=== PATIENT | male | born 1990 | race African-American/Black ===

== ENCOUNTER 2017-04-04 03:38 | Emergency (ER) | payer OTHER ==
[2017-04-04 03:44] VITALS: BP 135/77; PULSE 78; RESP 18; TEMP 98
[2017-04-04] MEDS ORDERED: IBUPROFEN 600 MG TAB PO STA (03:47)
--- NOTE | 2017-04-04 04:43 | ED ---
Trauma HPI - General Chief Complaint: Extremity Injury, Upper Stated Complaint: swollen finger/injury Time Seen by Provider: 04/04/17 03:45 Source: patient, family Mode of arrival: ambulatory Limitations: no limitations - History of Present Illness Initial Comments: Patient complains of injury to the right middle finger. He was playing sports. Pain is worse with movement. Pain does not radiate anywhere. He took no pain medication prior to arrival. He has no numbness or tingling. He has no weakness. He denies other injuries. - Related Data Home Medications Medication Instructions Recorded Confirmed No Known Home Medications [No 04/04/17 04/04/17 Known Home Medications] Allergies Allergy/AdvReac Type Severity Reaction Status Date / Time No Known Allergies Allergy Verified 04/04/17 03:43 Review of Systems ROS Statement: Those systems with pertinent positive or pertinent negative responses have been documented in the HPI. ROS Other: All systems not noted in ROS Statement are negative. Past Medical History Past Medical History: No Reported History History of Any Multi-Drug Resistant Organisms: None Reported Past Surgical History: No Surgical Hx Reported Past Psychological History: No Psychological Hx Reported Smoking Status: Current every day smoker Past Alcohol Use History: Occasional Past Drug Use History: Marijuana General Exam Limitations: no limitations Extremities exam: Present: other (Tender right middle finger) Back exam: Present: normal inspection Neurological exam: Present: alert, oriented X3, CN II-XII intact Course Vital Signs 04/04/17 03:39 Temperature 98 F Pulse Rate 78 Respiratory 18 Rate Blood Pressure 135/77 O2 Sat by Pulse 99 Oximetry Medical Decision Making - Medical Decision Making Patient complains of finger contusion. Examination reveals tenderness. He has a fracture of the middle phalanx of the right middle finger. Patient is placed in a splint. He is neurovascularly intact distal to injury site post lifting. He is stable for discharge. He will follow-up with orthopedics. Disposition Clinical Impression: Finger fracture, right Disposition: HOME SELF-CARE Instructions: Finger Fracture (ED) Referrals: None,Stated [Primary Care Provider] - 1-2 days [facility] [Provider Group] - 1-2 days Time of Disposition: 04:43
--- NOTE | 2017-04-04 05:04 | XR ---
EXAM: XR Right Finger(s), 2 or More Views CLINICAL HISTORY: Reason: Pain. Jammed finger earlier today. TECHNIQUE: Frontal, lateral and oblique views of finger(s) of the right hand. COMPARISON: None FINDINGS: Bones/joints: Mildly displaced fracture of the base of the second middle phalanx with intra-articular extension. Soft tissues: Prominent soft tissue swelling, worst around the right second PIP joint. IMPRESSION: Mildly displaced, intra-articular fracture of the base of the right second middle phalanx with surrounding soft tissue swelling.
== END 2017-04-04 05:26 | disposition home or self-care (01) ==
LOC: EC 03:38
DX: S62.622A Displaced fracture of middle phalanx of right middle finger, initial encounter for closed fracture (principal); F17.200 Nicotine dependence, unspecified, uncomplicated; X58.XXXA Exposure to other specified factors, initial encounter; Y93.61 Activity, american tackle football
CPT/HCPCS: 99283

== ENCOUNTER 2017-09-27 18:02 | Emergency (ER) | payer OTHER ==
[2017-09-27] MEDS ORDERED: METOCLOPRAMIDE 5 MG/ML 2 ML VIAL IVP STA (19:54)
[2017-09-27] MEDS ORDERED: KETOROLAC 30 MG/ML 1 ML VIAL IVP STA (19:54)
[2017-09-27] MEDS ORDERED: ACETAMINOPHEN TAB 500 MG TAB PO STA (19:54)
[2017-09-27] MEDS ORDERED: SODIUM CHLORIDE 0.9% 1,000 ML IV STA (19:54)
[2017-09-27] MEDS ORDERED: diphenhydrAMINE 50 MG/ML 1 ML VIAL IVP STA (19:54)
[2017-09-27] MEDS ORDERED: methylPREDNISolone SOD SUCCI 125 MG/2 ML VIAL IV STA (19:55)
[2017-09-27] MEDS ORDERED: ORPHENADRINE 30 MG/ML 2 ML VIAL IVP STA (19:55)
[2017-09-27 20:15] VITALS: RESP 16
--- NOTE | 2017-09-27 20:30 | ED ---
Headache HPI - General Chief Complaint: Headache Stated Complaint: Headache Time Seen by Provider: 09/27/17 19:37 Source: RN notes reviewed, old records reviewed Mode of arrival: ambulatory Limitations: no limitations - History of Present Illness Initial Comments: His is a 27-year-old male presents emergency department today chief complaint of headache. Patient reports he woke up with a headache after sleeping at his friend's couch. He reports it radiates on the results of his neck. Also, sore throat today. He denies any fever or chills. He denies any falls or trauma to the neck for half. He was seen yesterday for scratches on his arm. Denies any other symptoms at this time. It is worse with bright lights. Patient denies any recent fever, chills, shortness of breath, chest pain, back pain, abdominal pain, nausea vomiting, numbness or tingling, dysuria or hematuria, constipation or diarrhea, headaches or visual changes, or any other current symptoms - Related Data Previous Rx's Medication Instructions Recorded Amoxicillin 500 mg PO Q8H #30 capsule 09/27/17 Allergies Allergy/AdvReac Type Severity Reaction Status Date / Time No Known Allergies Allergy Verified 09/27/17 19:34 Review of Systems ROS Statement: Those systems with pertinent positive or pertinent negative responses have been documented in the HPI. ROS Other: All systems not noted in ROS Statement are negative. Past Medical History Past Medical History: No Reported History History of Any Multi-Drug Resistant Organisms: None Reported Past Surgical History: No Surgical Hx Reported Past Psychological History: No Psychological Hx Reported Smoking Status: Current every day smoker Past Alcohol Use History: Occasional Past Drug Use History: None Reported General Exam - General Exam Comments Initial Comments: 27-year-old male. No distress. Limitations: no limitations General appearance: alert, in no apparent distress Head exam: Present: atraumatic, normocephalic, normal inspection Eye exam: Present: normal appearance, PERRL, EOMI. Absent: scleral icterus, conjunctival injection, periorbital swelling ENT exam: Present: normal exam, mucous membranes moist Neck exam: Present: normal inspection. Absent: tenderness, meningismus, lymphadenopathy Respiratory exam: Present: normal lung sounds bilaterally. Absent: respiratory distress, wheezes, rales, rhonchi, stridor Cardiovascular Exam: Present: regular rate, normal rhythm, normal heart sounds. Absent: systolic murmur, diastolic murmur, rubs, gallop, clicks GI/Abdominal exam: Present: soft, normal bowel sounds. Absent: distended, tenderness, guarding, rebound, rigid Extremities exam: Present: normal inspection, full ROM, normal capillary refill. Absent: tenderness, pedal edema, joint swelling, calf tenderness Back exam: Present: normal inspection Neurological exam: Present: alert, oriented X3, CN II-XII intact Psychiatric exam: Present: normal affect, normal mood Skin exam: Present: warm, dry, intact, normal color. Absent: rash Course Vital Signs 09/27/17 09/27/17 18:18 20:15 Temperature 99.1 F Pulse Rate 94 Respiratory 20 16 Rate Blood Pressure 139/91 O2 Sat by Pulse 100 Oximetry Medical Decision Making - Medical Decision Making 27-year-old male presents emergency Department with a headache migraine-like symptoms. Given medications through the IV. He reports his headache is feeling better. He does have a red erythematous throat. Rapid strep obtained and is positive. I will start the patient on amoxicillin. Patient advised to continue Motrin Tylenol for pain. Started on amoxicillin given a starter pack and emergency department. Patient agrees to treatment plan will comply. Return parameters were discussed. Note the patient was here yesterday for an infected scratch on his forearm. He was discharged with a prescription for Augmentin. He reports he prescription was too expensive so we did not pick it up. Patient will be started on amoxicillin. - Lab Data Lab Results 09/27/17 Range/Units 20:10 Group A Strep Rapid Positive A (Negative) - Radiology Data Radiology results: report reviewed Disposition Clinical Impression: Strep pharyngitis, Migraine Disposition: HOME SELF-CARE Condition: Good Instructions: Acute Headache (ED), Pharyngitis (ED) Additional Instructions: Patient advised to rest, increase fluids. Complete the antibiotic prescription. Return to emergency department if any alarming signs or symptoms occur. Prescriptions: Amoxicillin 500 mg PO Q8H #30 capsule Referrals: None,Stated [Primary Care Provider] - 1-2 days Time of Disposition: 21:04
[2017-09-27] MEDS ORDERED: AMOXICILLIN 500MG STARTER PACK 3 CAP BTL PO STA (21:02)
[2017-09-27 21:29] VITALS: BP 140/72; PULSE 68; TEMP 98.5
== END 2017-09-27 21:25 | disposition home or self-care (01) ==
LOC: EC 18:02
DX: G43.909 Migraine, unspecified, not intractable, without status migrainosus (principal); J02.0 Streptococcal pharyngitis; F17.200 Nicotine dependence, unspecified, uncomplicated
CPT/HCPCS: 99284; 96374; 96375 ×4; 87430; J1200; J2360; J2765; J2930; J1885

== ENCOUNTER 2022-05-22 11:38 | Observation (INO) | payer OTHER ==
[2022-05-22] MEDS ORDERED: KETOROLAC 15 MG/ML 1 ML VIAL IVP STA (12:58)
[2022-05-22] MEDS ORDERED: ONDANSETRON 4 MG/2 ML VIAL IVP STA (12:58)
[2022-05-22] MEDS ORDERED: SODIUM CHLORIDE 0.9% 1,000 ML IV STA (12:58)
--- NOTE | 2022-05-22 13:06 | XR ---
EXAMINATION TYPE: XR KUB DATE OF EXAM: 05/22/2022 12:50 PM CLINICAL HISTORY: Abdominal pain. TECHNIQUE: Two Upright KUB images of the abdomen are obtained. COMPARISON: None. FINDINGS: Scattered gas is seen in non-distended small bowel loops. Gas and fecal material is seen in non-distended colon. There is no visceromegaly, pneumoperitoneum, or abnormal calcification apprecia quincy. The lung bases are clear and the osseous structures are intact. IMPRESSION: Overall nonobstructive bowel gas pattern.
--- NOTE | 2022-05-22 13:27 | ED ---
Abdominal Pain HPI - General Chief Complaint: Abdominal Pain Stated Complaint: abd pain Time Seen by Provider: 05/22/22 12:52 Source: patient Mode of arrival: ambulatory Limitations: no limitations - History of Present Illness Initial Comments: Patient is a 32-year-old male presenting with chief complaint of abdominal pain. Patient states that the pain is mainly located in the epigastric region, it is cramping, the pain comes and goes. States his last bowel movement was 3 days ago, yesterday he was having episodes of nausea and vomiting. Patient states that he had an episode of pancreatitis due to heavy drinking a few months ago, he was seen at a different institution. No hematemesis. No chest pain, shortness of breath, palpitations, weakness. No dysuria, hematuria, urgency, frequency. No flank pain. No URI-like symptoms. - Related Data Home Medications Medication Instructions Recorded Confirmed Ibuprofen [Motrin Ib] 800 mg PO Q8H PRN 05/22/22 05/22/22 Allergies Allergy/AdvReac Type Severity Reaction Status Date / Time No Known Allergies Allergy Verified 05/22/22 16:03 Review of Systems ROS Statement: Those systems with pertinent positive or pertinent negative responses have been documented in the HPI. ROS Other: All systems not noted in ROS Statement are negative. Past Medical History Past Medical History: No Reported History History of Any Multi-Drug Resistant Organisms: None Reported Past Surgical History: No Surgical Hx Reported Past Psychological History: No Psychological Hx Reported Smoking Status: Current every day smoker Past Alcohol Use History: Occasional Past Drug Use History: None Reported General Exam Limitations: no limitations General appearance: alert, in no apparent distress Head exam: Present: atraumatic, normocephalic, normal inspection Eye exam: Present: normal appearance, EOMI. Absent: scleral icterus, periorbital swelling Neck exam: Present: normal inspection Respiratory exam: Present: normal lung sounds bilaterally. Absent: respiratory distress, wheezes, rales, rhonchi, stridor Cardiovascular Exam: Present: regular rate, normal rhythm, normal heart sounds. Absent: systolic murmur, diastolic murmur, rubs, gallop, clicks GI/Abdominal exam: Present: distended, normal bowel sounds. Absent: soft, tenderness, guarding, rebound, rigid Neurological exam: Present: alert, oriented X3, CN II-XII intact Psychiatric exam: Present: normal affect, normal mood Skin exam: Present: warm, dry, intact, normal color. Absent: rash Course Vital Signs 05/22/22 11:46 Temperature 98.1 F Pulse Rate 82 Respiratory 18 Rate Blood Pressure 133/90 O2 Sat by Pulse 100 Oximetry Medical Decision Making - Medical Decision Making Patient is a 32-year-old male with history of pancreatitis presenting with chief complaint of epigastric pain, nausea, vomiting. Pain is been ongoing for the last few days. On examination abdomen is distended. Laboratory shows no leuko cytosis. Lipase is 1464 and amylase is 194. Bilirubin is 2.3. No leukocytosis. CT shows acute interstitial edematous pancreatitis. No. Pancreatic fluid collections. There is reactive duodenitis. Ultrasound shows no definitive evidence for choledocholithiasis. Patient is given pain medicatio n, Zofran, and placed on lactated Ringer's. I spoke with Dr. Adams who agreed to admit the patient. I discussed these findings and the plan with the patient, he was agreeable. I discussed this case with my attending Dr. Toussaint - Lab Data Result diagrams: 05/22/22 13:16 05/22/22 13:16 Lab Results 05/22/22 05/22/22 05/22/22 Range/Units 13:16 13:16 13:16 WBC 5.8 (3.8-10.6) k/uL RBC 5.27 (4.30-5.90) m/uL Hgb 16.2 (13.0-17.5) gm/dL Hct 48.2 (39.0-53.0) % MCV 91.6 (80.0-100.0) fL MCH 30.8 (25.0-35.0) pg MCHC 33.6 (31.0-37.0) g/dL RDW 12.8 (11.5-15.5) % Plt Count 206 (150-450) k/uL MPV 7.6 Neutrophils % 74 % Lymphocytes % 14 % Monocytes % 7 % Eosinophils % 3 % Basophils % 1 % Neutrophils # 4.3 (1.3-7.7) k/uL Lymphocytes # 0.8 L (1.0-4.8) k/uL Monocytes # 0.4 (0-1.0) k/uL Eosinophils # 0.2 (0-0.7) k/uL Basophils # 0.0 (0-0.2) k/uL Sodium 136 L (137-145) mmol/L Potassium 4.0 (3.5-5.1) mmol/L Chloride 97 L (98-107) mmol/L Carbon Dioxide 27 (22-30) mmol/L Anion Gap 12 mmol/L BUN 9 (9-20) mg/dL Creatinine 0.96 (0.66-1.25) mg/dL Est GFR (CKD-EPI)AfAm >90 (>60 ml/min/1.73 sqM) Est GFR (CKD-EPI)NonAf >90 (>60 ml/min/1.73 sqM) Glucose 86 (74-99) mg/dL Plasma Lactic Acid Ankit 1.1 (0.7-2.0) mmol/L Calcium 9.7 (8.4-10.2) mg/dL Total Bilirubin 2.3 H (0.2-1.3) mg/dL AST 37 (17-59) U/L ALT 38 (4-49) U/L Alkaline Phosphatase 98 (38-126) U/L Total Protein 7.7 (6.3-8.2) g/dL Albumin 4.7 (3.5-5.0) g/dL Amylase 194 H (30-110) U/L Lipase 1464 H (23-300) U/L Urine Color Urine Appearance (Clear) Urine pH (5.0-8.0) Ur Specific [place] (1.001-1.035) Urine Protein (Negative) Urine Glucose (UA) (Negative) Urine Ketones (Negative) Urine Blood (Negative) Urine Nitrite (Negative) Urine Bilirubin (Negative) Urine Urobilinogen (<2.0) mg/dL Ur Leukocyte Esterase (Negative) Urine RBC (0-5) /hpf Urine WBC (0-5) /hpf Ur Squamous Epith Cells (0-4) /hpf Urine Mucus (None) /hpf 05/22/22 Range/Units 15:04 WBC (3.8-10.6) k/uL RBC (4.30-5.90) m/uL Hgb (13.0-17.5) gm/dL Hct (39.0-53.0) % MCV (80.0-100.0) fL MCH (25.0-35.0) pg MCHC (31.0-37.0) g/dL RDW (11.5-15.5) % Plt Count (150-450) k/uL MPV Neutrophils % % Lymphocytes % % Monocytes % % Eosinophils % % Basophils % % Neutrophils # (1.3-7.7) k/uL Lymphocytes # (1.0-4.8) k/uL Monocytes # (0-1.0) k/uL Eosinophils # (0-0.7) k/uL Basophils # (0-0.2) k/uL Sodium (137-145) mmol/L Potassium (3.5-5.1) mmol/L Chloride (98-107) mmol/L Carbon Dioxide (22-30) mmol/L Anion Gap mmol/L BUN (9-20) mg/dL Creatinine (0.66-1.25) mg/dL Est GFR (CKD-EPI)AfAm (>60 ml/min/1.73 sqM) Est GFR (CKD-EPI)NonAf (>60 ml/min/1.73 sqM) Glucose (74-99) mg/dL Plasma Lactic Acid Ankit (0.7-2.0) mmol/L Calcium (8.4-10.2) mg/dL Total Bilirubin (0.2-1.3) mg/dL AST (17-59) U/L ALT (4-49) U/L Alkaline Phosphatase (38-126) U/L Total Protein (6.3-8.2) g/dL Albumin (3.5-5.0) g/dL Amylase (30-110) U/L Lipase (23-300) U/L Urine Color Yellow Urine Appearance Clear (Clear) Urine pH 6.0 (5.0-8.0) Ur Specific [place] 1.030 (1.001-1.035) Urine Protein 1+ H (Negative) Urine Glucose (UA) Negative (Negative) Urine Ketones 3+ H (Negative) Urine Blood Negative (Negative) Urine Nitrite Negative (Negative) Urine Bilirubin 1+ H (Negative) Urine Urobilinogen 3.0 (<2.0) mg/dL Ur Leukocyte Esterase Small H (Negative) Urine RBC <1 (0-5) /hpf Urine WBC 10 H (0-5) /hpf Ur Squamous Epith Cells <1 (0-4) /hpf Urine Mucus Occasional H (None) /hpf Disposition Clinical Impression: Pancreatitis Disposition: ADMITTED IP TO THIS [facility] Condition: Fair Referrals: None,Stated [Primary Care Provider] - 1-2 days Time of Disposition: 16:38 Decision to Admit Reason: Admit from EC Decision Date: 05/22/22 Decision Time: 16:38
[2022-05-22 13:42] LABS: Basophils % (A) 1 %; Eosinophils # (A) 0.2 k/uL (0-0.7); Eosinophils % (A) 3 %; HCT 48.2 % (39.0-53.0); HGB 16.2 gm/dL (13.0-17.5); Lymphocytes # (A) 0.8 k/uL (1.0-4.8); Lymphocytes % (A) 14 %; MCH 30.8 pg (25.0-35.0); MCHC 33.6 g/dL (31.0-37.0); MCV 91.6 fL (80.0-100.0); Mean Platelet Volume 7.6; Monocytes # (A) 0.4 k/uL (0-1.0); Monocytes % (A) 7 %; Neutrophils # (A) 4.3 k/uL (1.3-7.7); Neutrophils % (A) 74 %; Platelet Count 206 k/uL (150-450); RBC 5.27 m/uL (4.30-5.90); RDW 12.8 % (11.5-15.5); WBC 5.8 k/uL (3.8-10.6)
[2022-05-22 14:03] LABS: ALT 38 U/L (4-49); AST 37 U/L (17-59); African American GFR (CKD) >90 (>60 ml/min/1.73 sqM); Albumin 4.7 g/dL (3.5-5.0); Alkaline Phosphatase 98 U/L (38-126); Amylase 194 U/L (30-110); Anion Gap 12 mmol/L; Blood Urea Nitrogen 9 mg/dL (9-20); Calcium 9.7 mg/dL (8.4-10.2); Carbon Dioxide 27 mmol/L (22-30); Chloride 97 mmol/L (98-107); Glucose 86 mg/dL (74-99); Lipase 1464 U/L (23-300); Non-African American GFR(CKD) >90 (>60 ml/min/1.73 sqM); Sodium 136 mmol/L (137-145); Total Bilirubin 2.3 mg/dL (0.2-1.3); Total Protein 7.7 g/dL (6.3-8.2)
[2022-05-22] MEDS ORDERED: SODIUM CHLORIDE 0.9% 1,000 ML IV SCH (15:00)
--- NOTE | 2022-05-22 15:01 | CT ---
EXAMINATION TYPE: CT abdomen pelvis w con CT DLP: 967.5 mGycm, Automated exposure control for dose reduction was used. DATE OF EXAM: 05/22/2022 2:51 PM COMPARISON: KUB 05/22/2022 CLINICAL INDICATION:Male, 32 years old with history of Epigastric pain, pancreatitis; RUQ pain TECHNIQUE: Standard CT of the abdomen and pelvis following the administration of 100 cc of Isovue 3 00 IV contrast material. Coronal and sagittal reformats were performed. FINDINGS: LOWER CHEST: Unremarkable ABDOMEN LIVER: Small region of low attenuation adjacent to the falciform ligament likely representing focal f atty infiltration. Otherwise no concerning lesion. GALLBLADDER AND BILE DUCTS: Unremarkable. PANCREAS: Heterogenous low attenuation appearance of the pancreatic head/neck with surrounding inflam matory changes. No peripancreatic organized fluid collection. No peripancreatic vascular complication definitively visualized. No evidence for necrosis. No pancreatic parenchymal calcifications noted. N o pancreatic ductal dilatation. SPLEEN: Unremarkable. ADRENAL GLANDS: Unremarkable. KIDNEYS AND URETERS: No evidence of hydronephrosis or renal calculus. Kidneys enhance symmetrically w ithout suspicious focal lesion. PELVIS BLADDER: Incompletely distended but grossly unremarkable. REPRODUCTIVE: Nonspecific heterogenous appearance of the prostate gland. ABDOMEN & PELVIS STOMACH AND BOWEL: Stomach is unremarkable. Subtle fat stranding surrounding the proximal duodenum. T he appendix is within normal limits. No evidence of bowel obstruction. PERITONEUM: No evidence of pneumoperitoneum. Trace free fluid in the pelvis. VASCULATURE: No evidence of aortic aneurysm. MUSCULOSKELETAL: No acute osseous abnormalities LYMPH NODES: No gross evidence for lymphadenopathy. SOFT TISSUE/ABDOMINAL WALL: Unremarkable IMPRESSION: 1. Acute interstitial edematous pancreatitis. No peripancreatic fluid collections. 2. Reactive duodenitis.
[2022-05-22 15:17] LABS: Appearance,Urine Clear (Clear); Bilirubin,Urine 1+ (Negative); Blood,Urine Negative (Negative); Color,Urine Yellow; Glucose,Urine (UA) Negative (Negative); Leukocyte Esterase,Urine Small (Negative); Mucus,Urine Occasional /hpf; Nitrite,Urine Negative (Negative); Protein,Urine 1+ (Negative); RBC,Urine <1 /hpf (0-5); Squamous Epithelial Cell,Urine <1 /hpf (0-4); WBC,Urine 10 /hpf (0-5)
[2022-05-22 15:18] LABS: Ketones,Urine 3+ (Negative)
[2022-05-22] MEDS ORDERED: MORPHINE SULFATE 4 MG/ML SYRINGE IVP STA (15:36)
--- NOTE | 2022-05-22 16:31 | US ---
EXAMINATION TYPE: US abdomen limited DATE OF EXAM: 05/22/2022 COMPARISON: NONE CLINICAL HISTORY: Pancreatitis, rule out obstruction. TECHNIQUE: Multiple sonographic images of the right upper quadrant are obtained. FINDINGS: EXAM MEASUREMENTS: Liver Length: 11.2 cm Gallbladder Wall: 0.2 cm CBD: 0.4 cm Right Kidney: 11.2 X 4.8 X 5.5 cm ENGINE HEAD REPAIRER NOTES: Pancreas: appears bulky and heterogeneous Liver: wnl Gallbladder: No stones seen Evidence for sonographic Asher's sign: No CBD: wnl Right Kidney: No hydronephrosis or masses seen IMPRESSION: 1. No definitive evidence for choledocholithiasis. Consider MRCP if there remains clinical concern. 2. Similar appearing interstitial edematous pancreatitis changes. 3.
[2022-05-22] MEDS ORDERED: NALOXONE 0.4 MG/ML 1 ML VIAL IV PRN (16:46)
[2022-05-22] MEDS ORDERED: ONDANSETRON 4 MG/2 ML VIAL IVP PRN (16:46)
[2022-05-22] MEDS ORDERED: MORPHINE SULFATE 4 MG/ML SYRINGE IV PRN (16:46)
[2022-05-22] MEDS ORDERED: KETOROLAC 15 MG/ML 1 ML VIAL IVP PRN (16:46)
[2022-05-22] MEDS: PANTOPRAZOLE 40 MG/10 ML VIAL IVP SCH (17:40)
[2022-05-22] MEDS ORDERED: NICOTINE GUM (POLACRILEX) 2 MG GUM BUCCAL PRN (18:12)
[2022-05-22] MEDS ORDERED: ACETAMINOPHEN TAB 325 MG TAB PO PRN (18:12)
[2022-05-22] MEDS ORDERED: MELATONIN 3 MG TABLET PO PRN (18:12)
[2022-05-22] MEDS ORDERED: HYDROmorphone 2 MG TAB PO PRN (18:12)
[2022-05-22] MEDS: LACTATED RINGERS 1,000 ML IV SCH ×2 (18:21→18:26)
--- NOTE | 2022-05-22 18:26 | P.HPIM ---
History of Present Illness H&P Date: 05/22/22 Chief Complaint: abdominal pain Patient is a 32-year-old male with recent pancreatitis and ongoing tobacco abuse who presented to the emergency department with complaints of abdominal pain. In the ER he underwent an extensive evaluation. Initial vital signs within normal limits. Laboratory analysis was remarkable for a bilirubin of 2.3, amylase 194, lipase 1464, urinalysis was positive for proteins, ketones, and bilirubin. CT abdomen and pelvis demonstrated acute interstitial edematous pancreatitis with reactive duodenitis. Gallbladder ultrasound revealed no evidence of choledocholithiasis with edematous pancreas. He was provided with 1 L fluid bolus and pain medications. Patient seen and examined at bedside. He reports that he started having abdominal pain 3 days ago. He is unsure of the trigger. It is very similar to when he had pancreatitis 2 months ago, but it is less severe. He reports he has not been eating and drinking much the last 3 days because he thought it would help. He decided to come to the ER today because it was not getting any better. He does drink alcohol several drinks every other day. He denies eating fatty meals. He has no history of gallbladder dysfunction. He is unsure if they checked his cholesterol levels during his last hospital stay. Pertinent positives and negatives as discussed in HPI, a complete review of systems was performed and all other systems are negative. Vital signs reviewed General: nontoxic, no distress, appears at stated age Derm: warm, dry Head: atraumatic, normocephalic, symmetric Eyes: EOMI, no lid lag, anicteric sclera, pupils equal round reactive to light ENT: Nose and ears atraumatic, no thrush, no pharyngeal erythema Neck: No thyromegaly, no cervical lymphadenopathy, trachea midline, supple Mouth: no lip lesion, mucus membranes moist Cardiovascular: S1S2 reg, no murmur, positive posterior tibial pulse bilateral, no edema, capillary refill less than 2 seconds Lungs: clear to auscultation bilateral, no rhonchi, no rales, no wheeze, no accessory muscle use Abdominal: soft, tender to palpation epigastric, no guarding, no appreciable organomegaly, normal bowel sounds Ext: no gross muscle atrophy, muscle strength muscle strength 5 out of 5 in all 4 extremities, no contractures Neuro: CN II-XII grossly intact, light touch intact all 4 extremities, finger to nose within normal limits, Psych: Alert, oriented, appropriate affect Assessment/Plan: Acute pancreatitis -IV fluids -Pain control -Antiemetics -Okay for ice chips -Consult GI -Alcohol cessation Tobacco abuse -Cessation -Nicotine replacement The patient is admitted with an anticipated greater than 2 midnight stay for evaluation of acute pancreatitis. DVT prophylaxis: Lovenox Discussed with: Patient, nursing, ER physician Anticipated discharge date: In 1-[address]: Home A total of 45 minutes was spent on the care of this complex patient more than 50% of the time was spent in counseling and care coordination. Past Medical History Additional Past Medical History / Comment(s): pancreatitis History of Any Multi-Drug Resistant Organisms: None Reported Past Surgical History: No Surgical Hx Reported Past Psychological History: No Psychological Hx Reported Smoking Status: Current every day smoker Past Alcohol Use History: Heavy Past Drug Use History: None Reported - Past Family History family Additional Family Medical History / Comment(s): no family hx of pancreatitis Medications and Allergies Home Medications Medication Instructions Recorded Confirmed Type Ibuprofen [Motrin Ib] 800 mg PO Q8H PRN 05/22/22 05/22/22 History Allergies Allergy/AdvReac Type Severity Reaction Status Date / Time No Known Allergies Allergy Verified 05/22/22 16:03 Physical Exam Osteopathic Statement: *. No significant issues noted on an osteopathic s tructural exam other than those noted in the History and Physical/Consult. Vitals: Vital Signs Temp Pulse Resp BP Pulse Ox 05/22/22 11:46 98.1 F 82 18 133/90 100 Intake and Output 05/22/22 05/22/22 05/22/22 06:59 14:59 22:59 Other: Weight 89.811 kg Results CBC & Chem 7: 05/22/22 13:16 05/22/22 13:16 Labs: Abnormal Lab Results - Last 24 Hours (Table) 05/22/22 05/22/22 05/22/22 Range/Units 13:16 13:16 15:04 Lymphocytes # 0.8 L (1.0-4.8) k/uL Sodium 136 L (137-145) mmol/L Chloride 97 L (98-107) mmol/L Total Bilirubin 2.3 H (0.2-1.3) mg/dL Amylase 194 H (30-110) U/L Lipase 1464 H (23-300) U/L Urine Protein 1+ H (Negative) Urine Ketones 3+ H (Negative) Urine Bilirubin 1+ H (Negative) Ur Leukocyte Esterase Small H (Negative) Urine WBC 10 H (0-5) /hpf Urine Mucus Occasional H (None) /hpf
[2022-05-22] MEDS: NICOTINE 21MG/24HR PATCH TRANSDERM SCH (20:13)
[2022-05-22] MEDS: HYDROmorphone 0.5 MG/0.5 ML SYRINGE IVP PRN (20:14)
[2022-05-23] MEDS: HYDROmorphone 0.5 MG/0.5 ML SYRINGE IVP PRN ×5 (00:09→22:11)
[2022-05-23] MEDS: LACTATED RINGERS 1,000 ML IV SCH ×5 (00:10→22:12)
[2022-05-23 09:05] LABS: Basophils # (A) 0.01 X 10*3/uL (0.00-0.10); Basophils % (A) 0.2 %; Eosinophils # (A) 0.22 X 10*3/uL (0.04-0.35); Eosinophils % (A) 4.6 %; HGB 14.1 g/dL (13.0-17.0); Immature Grans, Automated 0.2 %; Lymphocytes # (A) 1.24 X 10*3/uL (0.90-5.00); Lymphocytes % (A) 25.9 %; MCH 30.3 pg (27.0-32.0); MCHC 33.6 g/dL (32.0-37.0); MCV 90.1 fL (80.0-97.0); Mean Platelet Volume 10.4 fL (9.5-12.2); Monocytes # (A) 0.53 X 10*3/uL (0.20-1.00); Monocytes % (A) 11.1 %; NRBC Per 100 WBC 0 /100 WBCS (0.0-0.0); Neutrophils # (A) 2.77 X 10*3/uL (1.80-7.70); Platelet Count 160 X 10*3/uL (140-440); RBC 4.66 X 10*6/uL (4.40-5.60); RDW 12.6 % (11.5-14.5); WBC 4.78 X 10*3/uL (4.50-10.00)
[2022-05-23] MEDS: ENOXAPARIN 40 MG/0.4 ML SYRINGE SQ SCH (09:16)
[2022-05-23] MEDS: PANTOPRAZOLE 40 MG/10 ML VIAL IVP SCH (09:17)
[2022-05-23] MEDS: NICOTINE 21MG/24HR PATCH TRANSDERM SCH (09:17)
[2022-05-23 09:38] LABS: African American GFR (CKD) 114.9 (60.0-200.0); Albumin 3.8 g/dL (3.8-4.9); Albumin/Globulin Ratio 2.24 (1.60-3.17); Anion Gap 9.9 mmol/L (10.00-18.00); BUN/Creat Ratio 6.7 Ratio (12.00-20.00); Blood Urea Nitrogen 6.7 mg/dL (9.0-27.0); Calcium 8.7 mg/dL (8.7-10.3); Carbon Dioxide 26.1 mmol/L (20.0-27.5); Globulin 1.7 g/dL (1.6-3.3); Non-African American GFR(CKD) 99.1 (60.0-200.0); Potassium 3.4 mmol/L (3.5-5.5); Total Bilirubin 1.4 mg/dL (0.30-1.20); Total Protein 5.5 g/dL (6.2-8.2)
[2022-05-23] MEDS ORDERED: POTASSIUM CHLORIDE 20 MEQ in WATER FOR INJECTION 1 100ML.BAG IVPB ONE (11:30)
[2022-05-23] MEDS: HYDROcodone/APAP 7.5-325MG 1 EACH TAB PO PRN (12:30)
--- NOTE | 2022-05-23 13:57 | P.PN ---
Subjective Progress Note Date: 05/23/22 Principal diagnosis: abdominal pain Patient is a 32-year-old male with recent pancreatitis and ongoing tobacco abuse who presented to the emergency department with complaints of abdominal pain. In the ER he underwent an extensive evaluation. Initial vital signs within normal limits. Laboratory analysis was remarkable for a bilirubin of 2.3, amylase 194, lipase 1464, urinalysis was positive for proteins, ketones, and bilirubin. CT abdomen and pelvis demonstrated acute interstitial edematous pancreatitis with reactive duodenitis. Gallbladder ultrasound revealed no evidence of choledocholithiasis with edematous pancreas. He was provided with 1 L fluid bolus and pain medications. He was admitted. He received an additional 2 L, started on IV fluids. GI was consulted. By the morning after admission his pain had greatly improved. Patient seen and examined at bedside. He denies any chest pain, shortness of breath, his abdominal pain is much better than yesterday, he is feeling hungry. He denies any nausea or vomiting. General: nontoxic, no distress, appears at stated age Derm: warm, dry Head: atraumatic, normocephalic, symmetric Eyes: EOMI, no lid lag, anicteric sclera Mouth: no lip lesion, mucus membranes moist Cardiovascular: S1S2 reg, no murmur, positive posterior tibial pulse bilateral, Lungs: CTA bilateral, no rhonchi, no rales , no accessory muscle use Abdominal: soft, tender to palpation. Epigastric, no guarding, no appreciable organomegaly Ext: no gross muscle atrophy, no edema, no contractures Neuro: CN II-XI grossly intact, no focal neuro deficits Psych: Alert, oriented, appropriate affect Assessment/Plan: Acute pancreatitis -IV fluids -Pain control, add orals to minimize IV narcotic use -Antiemetics -Increase to clear liquid -GI recommendations appreciated -Alcohol cessation -Check triglyceride level - suspect alcohol induced. Tobacco abuse -Cessation -Nicotine replacement DVT prophylaxis: Lovenox Discussed with: Patient, nursing Anticipated discharge: in AM Anticipated discharge place: home A total of 25 minutes was spent on the care of this complex patient more than 50% of the time was spent in counseling and care coordination. Objective - Vital Signs Vital signs: Vital Signs Temp 98.2 F 05/23/22 13:18 Pulse 68 05/23/22 13:18 Resp 14 05/23/22 13:18 BP 145/93 05/23/22 13:18 Pulse Ox 100 05/23/22 13:18 FiO2 Intake & Output 05/22/22 05/23/22 05/23/22 18:59 06:59 18:59 Intake Total 0 Balance 0 Weight 89.811 kg 89.811 kg Intake: Oral 0 Other: Voiding Method Toilet Toilet # Voids 2 - Labs CBC & Chem 7: 05/23/22 04:25 05/23/22 04:25 Labs: Abnormal Lab Results - Last 24 Hours (Table) 05/22/22 05/22/22 05/23/22 Range/Units 13:16 15:04 04:25 Sodium 136 L 133 L (137-145) mmol/L Potassium 3.4 L (3.5-5.5) mmol/L Chloride 97 L (98-107) mmol/L Anion Gap 9.90 L (10.00-18.00) mmol/L BUN 6.7 L (9.0-27.0) mg/dL BUN/Creatinine Ratio 6.70 L (12.00-20.00) Ratio Total Bilirubin 2.3 H 1.40 H (0.2-1.3) mg/dL Total Protein 5.5 L (6.2-8.2) g/dL Amylase 194 H (30-110) U/L Lipase 1464 H 166 H (23-300) U/L Urine Protein 1+ H (Negative) Urine Ketones 3+ H (Negative) Urine Bilirubin 1+ H (Negative) Ur Leukocyte Esterase Small H (Negative) Urine WBC 10 H (0-5) /hpf Urine Mucus Occasional H (None) /hpf
--- NOTE | 2022-05-23 16:00 | P.CONS ---
History of Present Illness - Reason for Consult Consult date: 05/23/22 Pancreatitis Requesting physician: Enid Adams - Chief Complaint Abdominal pain - History of Present Illness There is a pleasant 32-year-old -[place] male who presented to the emergency department with complaints of right upper quadrant and epigastric pain. Patient states pain has been present for the last couple of days associated with some nausea but no vomiting. Patient states he has a history of pancreatitis in his first episode was diagnosed approximately 2 months ago where he was admitted to [facility] for approximately 1 week duration. Patient admits to a long history of alcohol abuse and was told pancreatitis was related to a call abuse. Patient denies any new medications, no history of gallbladder disease. He states he drinks 2 pints of liquor a day and has been drinking daily since the age of 19. He also is a current every day smoker. He had a CT of the abdomen and pelvis that showed acute interstitial edematous medeiros creatitis and duodenitis. Ultrasound again shows pancreatitis, no gallstones present and CBD within normal limits. Patient denies any fevers or chills. No evidence of leukocytosis on admission. He was noted to have elevated amylase 194 and lipase at 1464 on admission. Today he states abdominal pain is improved. He is tolerating ice chips. Denies any nausea or vomiting. Review of Systems REVIEW OF SYSTEMS: CARDIOPULMONARY: No chest pain or shortness of breath. Gastrointestinal: Right upper quadrant abdominal pain. No nausea or vomiting. No hematemesis, coffee-ground emesis. No rectal bleeding, or melena. GENITOURINARY: No dysuria or hematuria. MUSCULOSKELETAL: Reports normal range of motion. SKIN: No rashes. No jaundice. ENDOCRINE: No chills, fevers. No excessive weight gain or loss. No polydipsia or polyuria. PSYCHIATRIC: Unremarkable. NEUROLOGY: No change in mental status. Denies dizziness, headache. ENT: Vision unremarkable. CONSTITUTIONAL: No recent weight loss. No fever, chills, night sweats. Past Medical History Past Medical History: No Reported History Additional Past Medical History / Comment(s): pancreatitis History of Any Multi-Drug Resistant Organisms: None Reported Past Surgical History: No Surgical Hx Reported Past Psychological History: No Psychological Hx Reported Smoking Status: Current every day smoker Past Alcohol Use History: Occasional Past Drug Use History: None Reported - Past Family History family Additional Family Medical History / Comment(s): no family hx of pancreatitis Medications and Allergies Home Medications Medication Instructions Recorded Confirmed Type Ibuprofen [Motrin Ib] 800 mg PO Q8H PRN 05/22/22 05/22/22 History Allergies Allergy/AdvReac Type Severity Reaction Status Date / Time No Known Allergies Allergy Verified 05/22/22 16:03 Physical Exam Vitals: Vital Signs Temp Pulse Pulse Resp BP BP Pulse Ox 05/23/22 08:00 97.7 F 58 L 14 138/85 100 05/23/22 02:14 97.9 F 57 L 17 146/89 100 05/22/22 22:21 98.1 F 52 L 19 162/85 98 05/22/22 20:12 98.6 F 58 L 18 159/75 100 05/22/22 18:28 56 L 16 164/84 100 05/22/22 11:46 98.1 F 82 18 133/90 100 Intake and Output 05/22/22 05/23/22 05/23/22 22:59 06:59 14:59 Intake Total 0 Balance 0 Intake: Oral 0 Other: Voiding Method Toilet # Voids 2 Weight 89.811 kg General appearance: The patient is alert, oriented, appears in no acute distress. HET: Head is normocephalic and atraumatic. Conjunctiva pink. Sclera anicteric. Neck: Supple without lymphadenopathy. Trachea midline. Heart: S1 S2. Regular rate and rhythm. Lungs: Clear to auscultation. Abdomen: Soft, mild right upper quadrant tenderness with palpation, nondistended with bowel sounds. No guarding or rigidity. Skin: No rashes. No jaundice. Extremities: Normal skin color and turgor. No pedal edema. Neurological: No focal deficits. Alert and oriented x3. Results CBC & Chem 7: 05/23/22 04:25 05/23/22 04:25 Labs: Abnormal Lab Results - Last 24 Hours (Table) 05/22/22 05/22/22 05/22/22 Range/Units 13:16 13:16 15:04 Lymphocytes # 0.8 L (1.0-4.8) k/uL Sodium 136 L (137-145) mmol/L Potassium (3.5-5.5) mmol/L Chloride 97 L (98-107) mmol/L Anion Gap (10.00-18.00) mmol/L BUN (9.0-27.0) mg/dL BUN/Creatinine Ratio (12.00-20.00) Ratio Total Bilirubin 2.3 H (0.2-1.3) mg/dL Total Protein (6.2-8.2) g/dL Amylase 194 H (30-110) U/L Lipase 1464 H (23-300) U/L Urine Protein 1+ H (Negative) Urine Ketones 3+ H (Negative) Urine Bilirubin 1+ H (Negative) Ur Leukocyte Esterase Small H (Negative) Urine WBC 10 H (0-5) /hpf Urine Mucus Occasional H (None) /hpf 05/23/22 Range/Units 04:25 Lymphocytes # (1.0-4.8) k/uL Sodium 133 L (137-145) mmol/L Potassium 3.4 L (3.5-5.5) mmol/L Chloride (98-107) mmol/L Anion Gap 9.90 L (10.00-18.00) mmol/L BUN 6.7 L (9.0-27.0) mg/dL BUN/Creatinine Ratio 6.70 L (12.00-20.00) Ratio Total Bilirubin 1.40 H (0.2-1.3) mg/dL Total Protein 5.5 L (6.2-8.2) g/dL Amylase (30-110) U/L Lipase 166 H (23-300) U/L Urine Protein (Negative) Urine Ketones (Negative) Urine Bilirubin (Negative) Ur Leukocyte Esterase (Negative) Urine WBC (0-5) /hpf Urine Mucus (None) /hpf CT scan - abdomen: report reviewed (Acute interstitial edematous pancreatitis. No. Pancreatic fluid collection. Reactive duodenitis.) US - abdomen: report reviewed (No definitive evidence for choledocholithiasis. Consider MRCP if there remains clinical concern. Similar-appearing interstitial edematous pancreatitis changes.) Assessment and Plan (1) Alcoholic pancreatitis Narrative/Plan: 32-year-old male with a history of alcohol dependence admitting to drinking 2 pints of liquor daily. Patient states he was previously diagnosed with pancreatitis alcohol-related approximately 2 months ago as his first episode and was admitted to [facility] for 1 week duration. He denies any other previous history, denies any new medications, no history of gallbladder disease. CT of abdomen and pelvis as well as abdominal ultrasound consistent with uncomplicated pancreatitis. Etiology likely alcohol induced. Pancreatic enzymes improving amylase 120 down from 194, lipase 166 down from 1464. Abdominal pain are improving on patient with IV fluids, GI rest and pain medications. Discuss with patient importance of alcohol abstinence, tobacco cessation. Current Visit: Yes Status: Acute Code(s): K85.20 - ALCOHOL INDUCED ACUTE PANCREATITIS WITHOUT NECROSIS OR INFCT SNOMED Code(s): 837394508 Plan: 1. Continue symptomatic and supportive care 2. Continue IV fluids 3. Patient may have clear liquid diet, advance as tolerated 4. Recommend alcohol abstinence and tobacco cessation 5. Continue with pain management Thank you for this consultation, we will continue to follow. Anticipate disch arge in the next [address] Luis Moore I agree with the dictator's note, documented as a scribe by Vivian June.
[2022-05-24] MEDS: LACTATED RINGERS 1,000 ML IV SCH ×2 (02:23→08:10)
[2022-05-24 05:53] LABS: ALT 20 U/L (4-49); AST 23 U/L (17-59); African American GFR (CKD) >90 (>60 ml/min/1.73 sqM); Albumin 3.6 g/dL (3.5-5.0); Albumin/Globulin Ratio 1.6; Alkaline Phosphatase 69 U/L (38-126); Anion Gap 8 mmol/L; Blood Urea Nitrogen 4 mg/dL (9-20); Calcium 8.8 mg/dL (8.4-10.2); Carbon Dioxide 30 mmol/L (22-30); Chloride 98 mmol/L (98-107); Globulin 2.3 g/dL; Glucose 96 mg/dL (74-99); Non-African American GFR(CKD) >90 (>60 ml/min/1.73 sqM); Potassium 3.6 mmol/L (3.5-5.1); Sodium 136 mmol/L (137-145); Total Bilirubin 1.6 mg/dL (0.2-1.3); Total Protein 5.9 g/dL (6.3-8.2)
[2022-05-24] MEDS: PANTOPRAZOLE 40 MG/10 ML VIAL IVP SCH (08:08)
[2022-05-24] MEDS: NICOTINE 21MG/24HR PATCH TRANSDERM SCH (08:08)
[2022-05-24] MEDS: ENOXAPARIN 40 MG/0.4 ML SYRINGE SQ SCH (08:09)
[2022-05-24 08:14] VITALS: BP 131/81; PULSE 62; RESP 14; TEMP 98.1
[2022-05-24] MEDS: HYDROcodone/APAP 7.5-325MG 1 EACH TAB PO PRN (08:16)
--- NOTE | 2022-05-24 11:37 | P.PN ---
Subjective Progress Note Date: 05/24/22 Principal diagnosis: Pancreatitis This is a pleasant 32-year-old -[place] male who presented to the emergency department with complaints of right upper quadrant and epigastric pain. Patient states pain has been present for the last couple of days associated with some nausea but no vomiting. Patient states he has a history of pancreatitis in his first episode was diagnosed approximately 2 months ago where he was admitted to [facility] for approximately 1 week duration. Patient admits to a long history of alcohol abuse and was told pancreatitis was related to a call abuse. Patient denies any new medications, no history of gallbladder disease. He states he drinks 2 pints of liquor a day and has been drinking daily since the age of 19. He also is a current every day smoker. He had a CT of the abdomen and pelvis that showed acute interstitial edematous pancreatitis and duodenitis. Ultrasound again shows pancreatitis, no gallstones present and CBD within normal limits. Patient denies any fevers or chills. No evidence of leukocytosis on admission. He was noted to have elevated amylase 194 and lipase at 1464 on admission. Today he states abdominal pain is improved. He is tolerating ice chips. Denies any nausea or vomiting. 05/24/2022: Patient seen and reevaluated. He has abdominal pain has improved significantly. He is tolerating full liquid diet. He's been up and ambulating. Denies any nausea or vomiting. Lipase continued to improve yesterday, LFTs are normal. Total bilirubin 1.6. Objective - Vital Signs Vital signs: Vital Signs Temp 98.1 F 05/24/22 08:00 Pulse 62 05/24/22 08:00 Resp 14 05/24/22 08:00 BP 131/81 05/24/22 08:00 Pulse Ox 100 05/24/22 08:00 FiO2 Intake & Output 05/23/22 05/24/22 05/24/22 18:59 06:59 18:59 Intake Total 118 240 Balance 118 240 Intake: Oral 118 240 Other: Voiding Method Toilet Toilet # Voids 2 2 - Exam General appearance: The patient is alert, oriented, appears in no acute distress. HET: Head is normocephalic and atraumatic. Conjunctiva pink. Sclera anicteric. Neck: Supple without lymphadenopathy. Abdomen: Soft, nontender, nondistended with bowel sounds. No guarding or rigidity. Extremities: Normal skin color and turgor. No pedal edema Skin: No rashes, no jaundice Neurological: No focal deficits. Alert and oriented -3. - Labs CBC & Chem 7: 05/23/22 04:25 05/24/22 05:22 Labs: Abnormal Lab Results - Last 24 Hours (Table) 05/23/22 05/24/22 Range/Units 04:25 05:22 Sodium 133 L 136 L (135-145) mmol/L Potassium 3.4 L (3.5-5.5) mmol/L Anion Gap 9.90 L (10.00-18.00) mmol/L BUN 6.7 L 4 L (9.0-27.0) mg/dL BUN/Creatinine Ratio 6.70 L (12.00-20.00) Ratio Total Bilirubin 1.40 H 1.6 H (0.30-1.20) mg/dL Total Protein 5.5 L 5.9 L (6.2-8.2) g/dL Lipase 166 H (14-60) U/L Assessment and Plan (1) Alcoholic pancreatitis Narrative/Plan: 32-year-old male with a history of alcohol dependence admitting to drinking 2 pints of liquor daily. Patient states he was previously diagnosed with pancreatitis alcohol-related approximately 2 months ago as his first episode and was admitted to [facility] for 1 week duration. He denies any other previous history, denies any new medications, no history of gallbladder disease. CT of abdomen and pelvis as well as abdominal ultrasound consistent with uncomplicated pancreatitis. Etiology likely alcohol induced. Pancreatic enzymes improving amylase 120 down from 194, lipase 166 down from 1464. Abdominal pain are improving on patient with IV fluids, GI rest and pain medications. Discuss with patient importance of alcohol abstinence, tobacco cessation. Status: Acute Code(s): K85.20 - ALCOHOL INDUCED ACUTE PANCREATITIS WITHOUT NECROSIS OR INFCT SNOMED Code(s): 487600692 Plan: 1. Continue symptomatic and supportive care 2. Advance diet as tolerated 3. Recommend alcohol abstinence and tobacco cessation Thank you for this consultation, patient is cleared for discharge from gastroenterology. Dr. Luis Moore I agree with the dictator's note, documented as a scribe by Vivian June.
--- NOTE | 2022-05-24 14:21 | P.DS ---
Providers Date of admission: 05/22/22 16:46 Expected date of discharge: 05/24/22 Attending physician: Enid Adams DO Consults: 05/22/22 16:46 Consult Physician Urgent Consulting Provider: Yara Moore Consult Reason/Comments: Pancreatitis Do you want consulting provider notified?: Yes Primary care physician: Stated None Hospital Course: Discharge Diagnosis: Acute pancreatitis Tobacco abuse Alcoholic gastritis Hospital Course: Patient is a 32-year-old male with recent pancreatitis and ongoing tobacco abuse who presented to the emergency department with complaints of abdominal pain. In the ER he underwent an extensive evaluation. Initial vital signs within normal limits. Laboratory analysis was remarkable for a bilirubin of 2.3, amylase 194, lipase 1464, urinalysis was positive for proteins, ketones, and bilirubin. CT abdomen and pelvis demonstrated acute interstitial edematous pancreatitis with reactive duodenitis. Gallbladder ultrasound revealed no evidence of choledocholithiasis with edematous pancreas. He was provided with 1 L fluid bolus and pain medications. He was admitted. He received an additional 2 L, started on IV fluids. GI was consulted. By the morning after admission his pain had greatly improved. He was started on a diet. He tolerated this and pain medication needs were decreased. He was determined stable for discharge. Follow-up: establish a PCP Dr. Stephens suggested, off work until 05/28, over the counter motrin and tylenol as needed for pain. zIT was suggest that he stay on PPI for alcohol gastritis. Triglyceride levels pending at discharge. Patient seen and examined at bedside. No abdominal pain, tolerating diet well, no nausea, pain is controlled. Vital signs reviewed and stable. General: nontoxic, no distress, appears at stated age Derm: warm, dry Head: atraumatic, normocephalic, symmetric Eyes: EOMI, no lid lag, anicteric sclera Mouth: no lip lesion, mucus membranes moist Cardiovascular: S1S2 reg, no murmur, positive posterior tibial pulse bilateral, Lungs: CTA bilateral, no rhonchi, no rales , no accessory muscle use Abdominal: soft, nontender to palpation, no guarding, no appreciable organomegaly Ext: no gross muscle atrophy, no edema, no contractures Neuro: CN II-XI grossly intact, no focal neuro deficits Psych: Alert, oriented, appropriate affect A total of 33 minutes of time were spent preparing this complex discharge summary. Patient was discharged on 05/24/22. Patient Condition at Discharge: Fair Plan - Discharge Summary New Discharge Prescriptions: New Pantoprazole [Protonix] 40 mg PO DAILY #30 tab Continue Ibuprofen [Motrin Ib] 800 mg PO Q8H PRN PRN Reason: Pain Or Fever > 100.5 Discharge Medication List Ibuprofen [Motrin Ib] 800 mg PO Q8H PRN 05/22/22 [History] Pantoprazole [Protonix] 40 mg PO DAILY #30 tab 05/24/22 [Rx] Follow up Appointment(s)/Referral(s): Luke Stephens [STAFF PHYSICIAN] - 1 Week (please call for an appointment barbara thank you ) Patient Instructions/Handouts: Pancreatitis (DC) Activity/Diet/Wound Care/Special Instructions: Activity: as tolerated Diet: low fat Special Instructions: Abstain from alcohol Return to work on 05/28/22 Please establish a primary care physician I have suggested one for you Discharge/Stand Alone Forms: Work/School Release / Restrict Discharge Disposition: HOME SELF-CARE
== END 2022-05-24 10:20 | disposition home or self-care (01) ==
LOC: EC 11:38 → 4SSUR 16:46 → INTOOBSV 16:46 → 4SSUR 18:51 → 6NMEDSUR 21:42 → UNDODISIN 05-24 10:20
PROVIDERS: ADMIT Internal Medicine; ATTEND Internal Medicine
DX: K85.20 Alcohol induced acute pancreatitis without necrosis or infection (principal); F10.20 Alcohol dependence, uncomplicated; K29.80 Duodenitis without bleeding; K29.20 Alcoholic gastritis without bleeding; R74.8 Abnormal levels of other serum enzymes; F17.200 Nicotine dependence, unspecified, uncomplicated
CPT/HCPCS: 96376 ×3; 96361 ×3; 96365; 96375; 99285; 36415; 80053 ×3; 82150 ×2; 83605; 83690 ×2; 84478; 85025 ×2; 81001; 74018; 76705; 74177; G0378 ×3; S4990 ×3; J2270; J3480; J2405; J1650; J1885; C9113 ×3; J1170 ×2; Q9967; 96374

== ENCOUNTER 2022-07-29 04:18 | Inpatient (IN) | payer OTHER ==
[2022-07-29] MEDS ORDERED: MORPHINE SULFATE 4 MG/ML SYRINGE IV STA (04:56)
[2022-07-29] MEDS ORDERED: ONDANSETRON 4 MG/2 ML VIAL IVP STA (04:56)
[2022-07-29] MEDS ORDERED: PANTOPRAZOLE 40 MG/10 ML VIAL IVP STA (04:56)
[2022-07-29] MEDS ORDERED: SODIUM CHLORIDE 0.9% 1,000 ML IV STA ×2 (04:56)
--- NOTE | 2022-07-29 04:57 | ED ---
Abdominal Pain HPI - General Chief Complaint: Abdominal Pain Stated Complaint: Abdominal Pain Time Seen by Provider: 07/29/22 04:30 Source: patient, RN notes reviewed, old records reviewed Mode of arrival: ambulatory Limitations: no limitations - History of Present Illness Initial Comments: This is a 32-year-old male to the emergency for evaluation. Patient known to our emergency department. Patient has recurrent pancreatitis and coming in for symptoms of feeling prior episodes of pancreatitis today. Patient has epigastric pain significant nausea vomiting. Denying any other symptoms, no diarrhea no fevers. MD Complaint: abdominal pain (Epigastric) -: hour(s) Location: epigastric, suprapubic Radiation: epigastric Migration to: bilateral flank Severity: severe Severity scale (1-10): 10 Quality: sharp Consistency: constant Improves With: nothing Worsens With: eating Associated Symptoms: nausea, vomiting Treatments Prior to Arrival: other (0) - Related Data Home Medications Medication Instructions Recorded Confirmed Ibuprofen [Motrin Ib] 800 mg PO Q8H PRN 05/22/22 07/29/22 Allergies Allergy/AdvReac Type Severity Reaction Status Date / Time No Known Allergies Allergy Verified 07/29/22 04:28 Review of Systems ROS Statement: Those systems with pertinent positive or pertinent negative responses have been documented in the HPI. ROS Other: All systems not noted in ROS Statement are negative. Past Medical History Past Medical History: No Reported History Additional Past Medical History / Comment(s): pancreatitis History of Any Multi-Drug Resistant Organisms: None Reported Past Surgical History: No Surgical Hx Reported Past Psychological History: No Psychological Hx Reported Smoking Status: Current every day smoker Past Alcohol Use History: Occasional Past Drug Use History: None Reported - Past Family History family Additional Family Medical History / Comment(s): no family hx of pancreatitis General Exam Limitations: no limitations General appearance: alert, in no apparent distress Head exam: Present: atraumatic, normocephalic, normal inspection Eye exam: Present: normal appearance, PERRL, EOMI. Absent: scleral icterus, conjunctival injection, periorbital swelling ENT exam: Present: normal exam, mucous membranes moist Neck exam: Present: normal inspection. Absent: tenderness, meningismus, lymphadenopathy Respiratory exam: Present: normal lung sounds bilaterally. Absent: respiratory distress, wheezes, rales, rhonchi, stridor Cardiovascular Exam: Present: regular rate, normal rhythm, normal heart sounds. Absent: systolic murmur, diastolic murmur, rubs, gallop, clicks GI/Abdominal exam: Present: soft, tenderness, guarding, normal bowel sounds. Absent: distended, rebound, rigid Extremities exam: Present: normal inspection, full ROM, normal capillary refill. Absent: tenderness, pedal edema, joint swelling, calf tenderness Back exam: Present: normal inspection Neurological exam: Present: alert, oriented X3, CN II-XII intact Psychiatric exam: Present: normal affect, normal mood Skin exam: Present: warm, dry, intact, normal color. Absent: rash Course Vital Signs 07/29/22 04:28 Temperature 98.3 F Pulse Rate 85 Respiratory 16 Rate Blood Pressure 152/95 O2 Sat by Pulse 100 Oximetry - Reevaluation(s) Reevaluation #1: 07/29/22 Medical records reviewed Reevaluation #2: 07/29/22 Patient informed of results and questions are answered Reevaluation #3: 07/29/22 Patient symptoms are improved - Consultations Consultation #1: Spoke with [facility] emergency department physicians who agree to admit this patient Medical Decision Making - Medical Decision Making 32 male with a acute on chronic pancreatitis recurrent. Patient will be admitted for nothing by mouth pain control hydration. - Lab Data Result diagrams: 07/29/22 04:59 07/29/22 04:59 Lab Results 07/29/22 07/29/22 Range/Units 04:59 04:59 WBC 6.3 (3.8-10.6) k/uL RBC 4.59 (4.30-5.90) m/uL Hgb 14.2 (13.0-17.5) gm/dL Hct 40.6 (39.0-53.0) % MCV 88.5 (80.0-100.0) fL MCH 31.0 (25.0-35.0) pg MCHC 35.0 (31.0-37.0) g/dL RDW 12.8 (11.5-15.5) % Plt Count 166 (150-450) k/uL MPV 8.4 Neutrophils % 69 % Lymphocytes % 15 % Monocytes % 9 % Eosinophils % 4 % Basophils % 1 % Neutrophils # 4.3 (1.3-7.7) k/uL Lymphocytes # 0.9 L (1.0-4.8) k/uL Monocytes # 0.6 (0-1.0) k/uL Eosinophils # 0.3 (0-0.7) k/uL Basophils # 0.0 (0-0.2) k/uL Sodium 137 (137-145) mmol/L Potassium 4.1 (3.5-5.1) mmol/L Chloride 101 (98-107) mmol/L Carbon Dioxide 24 (22-30) mmol/L Anion Gap 12 mmol/L BUN 7 L (9-20) mg/dL Creatinine 0.95 (0.66-1.25) mg/dL Est GFR (CKD-EPI)AfAm >90 (>60 ml/min/1.73 sqM) Est GFR (CKD-EPI)NonAf >90 (>60 ml/min/1.73 sqM) Glucose 81 (74-99) mg/dL Calcium 8.8 (8.4-10.2) mg/dL Total Bilirubin 1.4 H (0.2-1.3) mg/dL AST 43 (17-59) U/L ALT 23 (4-49) U/L Alkaline Phosphatase 58 (38-126) U/L Total Protein 6.6 (6.3-8.2) g/dL Albumin 4.1 (3.5-5.0) g/dL Amylase 216 H (30-110) U/L Lipase 1851 H (23-300) U/L Disposition Clinical Impression: Pancreatitis, Alcoholic pancreatitis, Abdominal pain Disposition: ADMITTED IP TO THIS [facility] Condition: Fair Is patient prescribed a controlled substance at d/c from ED?: No Time of Disposition: 06:10
[2022-07-29 05:32] LABS: Basophils % (A) 1 %; Eosinophils # (A) 0.3 k/uL (0-0.7); Eosinophils % (A) 4 %; HCT 40.6 % (39.0-53.0); HGB 14.2 gm/dL (13.0-17.5); Lymphocytes # (A) 0.9 k/uL (1.0-4.8); Lymphocytes % (A) 15 %; MCV 88.5 fL (80.0-100.0); Mean Platelet Volume 8.4; Monocytes # (A) 0.6 k/uL (0-1.0); Monocytes % (A) 9 %; Neutrophils # (A) 4.3 k/uL (1.3-7.7); Neutrophils % (A) 69 %; Platelet Count 166 k/uL (150-450); RBC 4.59 m/uL (4.30-5.90); RDW 12.8 % (11.5-15.5); WBC 6.3 k/uL (3.8-10.6)
[2022-07-29 05:49] LABS: ALT 23 U/L (4-49); AST 43 U/L (17-59); African American GFR (CKD) >90 (>60 ml/min/1.73 sqM); Albumin 4.1 g/dL (3.5-5.0); Alkaline Phosphatase 58 U/L (38-126); Amylase 216 U/L (30-110); Anion Gap 12 mmol/L; Blood Urea Nitrogen 7 mg/dL (9-20); Calcium 8.8 mg/dL (8.4-10.2); Carbon Dioxide 24 mmol/L (22-30); Chloride 101 mmol/L (98-107); Glucose 81 mg/dL (74-99); Lipase 1851 U/L (23-300); Non-African American GFR(CKD) >90 (>60 ml/min/1.73 sqM); Sodium 137 mmol/L (137-145); Total Bilirubin 1.4 mg/dL (0.2-1.3); Total Protein 6.6 g/dL (6.3-8.2)
[2022-07-29 06:06] LABS: Potassium 4.1 mmol/L (3.5-5.1)
[2022-07-29] MEDS ORDERED: ONDANSETRON 4 MG/2 ML VIAL IVP PRN (06:10)
[2022-07-29] MEDS ORDERED: NALOXONE 0.4 MG/ML 1 ML VIAL IV PRN (06:10)
[2022-07-29] MEDS: MORPHINE SULFATE 4 MG/ML SYRINGE IV PRN ×3 (08:12→18:05)
[2022-07-29] MEDS: PANTOPRAZOLE 40 MG/10 ML VIAL IV SCH (08:12)
[2022-07-29] MEDS: SODIUM CHLORIDE 0.9% 1,000 ML IV SCH ×2 (08:13→14:13)
--- NOTE | 2022-07-29 11:59 | P.HPIM ---
History of Present Illness H&P Date: 07/29/22 Patient is a 32-year-old male with past medical history of alcohol abuse and pancreatitis presents the ED for abdominal pain. Patient reports recently being admitted at [facility] for 4-5 days for pancreatitis and leaving AMA because he was unhappy with their care. He subsequently presented to [facility]. He reports epigastric pain radiating to the back. Pain is currently 5 out of 10 in severity. He describes the pain as sharp and shooting in nature. No alleviating or aggravating factors. Patient states that he has not drank alcohol since April 2022. He denies any headache, lower extremity edema, nausea or vomiting, fever or chills, cough, chest pain, shortness of breath, palpitations, changes in urination or bowel habits. No changes in appetite or weight. He denies any lightheadedness, numbness/weakness/tingling of the extremities. In the ED, his vital signs are stable. CBC was unremarkable. CMP showed total bilirubin of 1.4. Amylase was 216. Lipase was 1851. Patient is admitted for pancreatitis. Review of systems performed and is negative except above. General: non toxic, no distress, appears at stated age Derm: warm, dry Head: atraumatic, normocephalic, symmetric Eyes: EOMI, no lid lag, anicteric sclera Mouth: no lip lesion, mucus membranes moist Cardiovascular: S1S2 reg, no murmur, positive posterior tibial pulse bilateral, Lungs: CTA bilateral, no rhonchi, no rales , no accessory muscle use Abdominal: soft, tenderness to palpation epigastric area without rebound, no guarding, no appreciable organomegaly Ext: no gross muscle atrophy, no edema, no contractures Neuro: CN II-XI grossly intact, no focal neuro deficits Psych: Alert, oriented, appropriate affect #Acute on chronic pancreatitis #Elevated total bilirubin #History of alcohol abuse #Smoker Patient will be placed nothing by mouth with diet advanced as tolerated. Start normal saline at 130 mL per hour. Zofran as needed for nausea and vomiting. Morphine as needed for pain. Obtain gallbladder ultrasound to rule out obstruction. Patient states he is not drank alcohol since April. Continue to monitor. Patient be started on nicotine patch. DVT prophylaxis: Heparin Discussed with: Patient Anticipated discharge: 2-[address]: Home A total of 35 minutes was spent on the care of this complex patient more than 50% of the time was spent in counseling and care coordination. Patient names his decision-maker if he can't make decisions for himself. Patient would like to be full code. Past Medical History Past Medical History: No Reported History Additional Past Medical History / Comment(s): pancreatitis History of Any Multi-Drug Resistant Organisms: None Reported Past Surgical History: No Surgical Hx Reported Past Psychological History: No Psychological Hx Reported Smoking Status: Current every day smoker Past Alcohol Use History: Occasional Past Drug Use History: None Reported - Past Family History family Additional Family Medical History / Comment(s): no family hx of pancreatitis Medications and Allergies Home Medications Medication Instructions Recorded Confirmed Type Ibuprofen [Motrin Ib] 800 mg PO Q8H PRN 05/22/22 07/29/22 History Allergies Allergy/AdvReac Type Severity Reaction Status Date / Time No Known Allergies Allergy Verified 07/29/22 04:28 Physical Exam Vitals: Vital Signs Temp Pulse Pulse Resp BP BP Pulse Ox 07/29/22 11:39 98.5 F 58 L 16 151/94 100 07/29/22 07:42 98.1 F 65 16 149/98 99 07/29/22 04:28 98.3 F 85 16 152/95 100 Intake and Output 07/28/22 07/29/22 07/29/22 22:59 06:59 14:59 Other: Weight 89.811 kg Results CBC & Chem 7: 07/29/22 04:59 07/29/22 04:59 Labs: Abnormal Lab Results - Last 24 Hours (Table) 07/29/22 07/29/22 Range/Units 04:59 04:59 Lymphocytes # 0.9 L (1.0-4.8) k/uL BUN 7 L (9-20) mg/dL Total Bilirubin 1.4 H (0.2-1.3) mg/dL Amylase 216 H (30-110) U/L Lipase 1851 H (23-300) U/L
[2022-07-29] MEDS: NICOTINE 21MG/24HR PATCH TRANSDERM SCH (12:48)
--- NOTE | 2022-07-29 14:22 | US ---
EXAMINATION TYPE: US liver DATE OF EXAM: 07/29/2022 COMPARISON: CLINICAL HISTORY: pancreatitis. Pain TECHNIQUE: Multiple sonographic images of the right upper quadrant are obtained. FINDINGS: EXAM MEASUREMENTS: Liver Length: 17.4 cm Gallbladder Wall: 0.2 cm CBD: 0.4 cm Right Kidney: 11.3 x 6.7 x 4.7 cm Pancreas: Body- 1.2 cm. Liver: wnl Gallbladder: No stones seen Evidence for sonographic Asher's sign: neg CBD: wnl Right Kidney: No hydronephrosis or masses seen IMPRESSION: Normal right upper quadrant abdominal sonogram. No gallstones or dilated ducts. No focal liver defect .
[2022-07-29] MEDS: HEPARIN SODIUM,PORCINE/PF 5,000 UNIT/0.5 ML SYRINGE SQ SCH (20:28)
[2022-07-30] MEDS: SODIUM CHLORIDE 0.9% 1,000 ML IV SCH ×3 (00:18→12:29)
[2022-07-30] MEDS: MORPHINE SULFATE 4 MG/ML SYRINGE IV PRN ×2 (00:18→07:58)
[2022-07-30] MEDS: PANTOPRAZOLE 40 MG/10 ML VIAL IV SCH (07:57)
[2022-07-30] MEDS: HEPARIN SODIUM,PORCINE/PF 5,000 UNIT/0.5 ML SYRINGE SQ SCH (07:57)
[2022-07-30] MEDS: NICOTINE 21MG/24HR PATCH TRANSDERM SCH (07:58)
[2022-07-30] MEDS ORDERED: oxyCODONE-APAP 10-325MG 1 EACH TAB PO PRN (10:55)
[2022-07-30 11:49] VITALS: BP 148/84; PULSE 58; RESP 18; TEMP 98.4
--- NOTE | 2022-07-30 12:03 | P.DS ---
Providers Date of admission: 07/29/22 06:10 Expected date of discharge: 07/30/22 Attending physician: Lashonda Monaco MD Primary care physician: Stated None Hospital Course: Patient is a 32-year-old male with past medical history of alcohol abuse and pancreatitis presents the ED for abdominal pain. Patient reports recently being admitted at [facility] for 4-5 days for pancreatitis and leaving AMA because he was unhappy with their care. He subsequently presented to [facility]. He reports epigastric pain radiating to the back. Pain is currently 5 out of 10 in severity. He describes the pain as sharp and shooting in nature. No alleviating or aggravating factors. Patient states that he has not drank alcohol since April 2022. He denies any headache, lower extremity edema, nausea or vomiting, fever or chills, cough, chest pain, shortness of breath, palpitations, changes in urination or bowel habits. No changes in appetite or weight. He denies any lightheadedness, numbness/weakness/tingling of the extremities. In the ED, his vital signs are stable. CBC was unremarkable. CMP showed total bilirubin of 1.4. Amylase was 216. Lipase was 1851. Patient is admitted for pancreatitis. His diet was slowly advanced. He was hydrated with normal saline IV. He was given morphine as needed for pain. Gallbladder ultrasound was negative for obstruction. His clinical condition improved during his hospitalization. Patient was seen and examined. He reported epigastric pain, 10 in severity. No nausea. Requesting a diet. Plan is to discharge the patient home if he can tolerate oral intake without IV narcotic for pain control. He is advised to follow-up with his PCP within 1-2 days of discharge. Patient is advised against drinking alcohol. General: non toxic, no distress, appears at stated age Derm: warm, dry Head: atraumatic, normocephalic, symmetric Eyes: EOMI, no lid lag, anicteric sclera Mouth: no lip lesion, mucus membranes moist Cardiovascular: S1S2 reg, no murmur, positive posterior tibial pulse bilateral, Lungs: CTA bilateral, no rhonchi, no rales , no accessory muscle use Abdominal: soft, tenderness to palpation epigastric area without rebound, no guarding, no appreciable organomegaly Ext: no gross muscle atrophy, no edema, no contractures Neuro: no focal neuro deficits Psych: Alert, oriented, appropriate affect Discharge Diagnosis: #Acute on chronic pancreatitis #Elevated total bilirubin #History of alcohol abuse #Smoker This complex discharge took about 35 minutes to complete. Patient Condition at Discharge: Stable Plan - Discharge Summary New Discharge Prescriptions: New Pantoprazole [Protonix] 40 mg PO DAILY #30 tab oxyCODONE-APAP 10-325MG [Percocet 10-325 mg] 1 each PO Q4HR PRN #18 tab PRN Reason: Pain Continue Ibuprofen [Motrin Ib] 800 mg PO Q8H PRN PRN Reason: Pain Or Fever > 100.5 Discharge Medication List Ibuprofen [Motrin Ib] 800 mg PO Q8H PRN 05/22/22 [History] Pantoprazole [Protonix] 40 mg PO DAILY #30 tab 07/30/22 [Rx] oxyCODONE-APAP 10-325MG [Percocet 10-325 mg] 1 each PO Q4HR PRN #18 tab 07/30/22 [Rx] Follow up Appointment(s)/Referral(s): None,Stated [Primary Care Provider] - 1-2 days Activity/Diet/Wound Care/Special Instructions: Diet: GI soft FU PCP within 1-2 days of DC. Refrain from drinking alcohol. Take all medications as advised. Discharge Disposition: HOME SELF-CARE
== END 2022-07-30 14:42 | disposition home or self-care (01) | DRG 440 ==
LOC: EC 04:18 → 5NMEDONC 06:10
PROVIDERS: ADMIT Internal Medicine; ATTEND Internal Medicine
DX: K85.90 Acute pancreatitis without necrosis or infection, unspecified (principal); K86.1 Other chronic pancreatitis; F17.210 Nicotine dependence, cigarettes, uncomplicated; Z71.6 Tobacco abuse counseling
CPT/HCPCS: 36415; 76705; 80053; 82150; 83690; 85025; 96361; 96374; 96375; 99284

== ENCOUNTER 2023-05-29 19:01 | Emergency (ER) | payer OTHER ==
[2023-05-29] MEDS ORDERED: KETOROLAC 15 MG/ML 1 ML VIAL IVP STA ×2 (19:39→20:47)
[2023-05-29] MEDS ORDERED: HYDROmorphone 1 MG/ML 1 ML SYRINGE IVP STA (19:39)
[2023-05-29] MEDS ORDERED: SODIUM CHLORIDE 0.9% 1,000 ML IV STA (19:39)
--- NOTE | 2023-05-29 19:47 | ED ---
Abdominal Pain HPI - General Chief Complaint: Abdominal Pain Stated Complaint: abd/back pain Time Seen by Provider: 05/29/23 19:28 Source: patient, RN notes reviewed Mode of arrival: ambulatory Limitations: no limitations - History of Present Illness Initial Comments: This is a 33-year-old male who presents to the emergency department for abdominal pain. Patient states that this is in the mid to upper region of his abdomen. The pain is also starting to wrap around into his back. Pain started on 05/16. He initially thought that the symptoms were improving, however they started to worsen again. He reports a history of alcohol-induced pancreatitis, and states that this feels the same. Denies any nausea or vomiting. He does report problems with constipation. Denies any fevers, chills, sore throat, cough, dyspnea, chest pain, palpit ations, nausea, vomiting, diarrhea, or headaches. MD Complaint: abdominal pain Location: epigastric Radiation: back - Related Data Home Medications Medication Instructions Recorded Confirmed Ibuprofen [Motrin Ib] 800 mg PO Q8H PRN 05/22/22 07/29/22 Previous Rx's Medication Instructions Recorded Pantoprazole [Protonix] 40 mg PO DAILY #30 tab 07/30/22 oxyCODONE-APAP 10-325MG [Percocet 1 each PO Q4HR PRN #18 tab 07/30/22 10-325 mg] HYDROcodone/APAP 7.5-325MG [Rochester 1 tab PO Q6HR PRN 3 Days #12 tab 05/29/23 7.5-325] Ketorolac [Toradol] 10 mg PO Q6HR PRN #15 tab 05/29/23 Allergies Allergy/AdvReac Type Severity Reaction Status Date / Time No Known Allergies Allergy Verified 07/29/22 04:28 Review of Systems ROS Statement: Those systems with pertinent positive or pertinent negative responses have been documented in the HPI. ROS Other: All systems not noted in ROS Statement are negative. Past Medical History Past Medical History: No Reported History Additional Past Medical History / Comment(s): pancreatitis History of Any Multi-Drug Resistant Organisms: None Reported Past Surgical History: No Surgical Hx Reported Past Psychological History: No Psychological Hx Reported Smoking Status: Current every day smoker Past Alcohol Use History: Occasional Past Drug Use History: None Reported - Past Family History family Additional Family Medical History / Comment(s): no family hx of pancreatitis General Exam Limitations: no limitations General appearance: alert, in no apparent distress Head exam: Present: atraumatic, normocephalic, normal inspection Respiratory exam: Present: normal lung sounds bilaterally. Absent: respiratory distress, wheezes, rales, rhonchi, stridor Cardiovascular Exam: Present: regular rate, normal rhythm, normal heart sounds. Absent: systolic murmur, diastolic murmur, rubs, gallop, clicks GI/Abdominal exam: Present: soft, tenderness (epigastric), normal bowel sounds. Absent: distended Neurological exam: Present: alert, oriented X3, CN II-XII intact Psychiatric exam: Present: normal affect, normal mood Skin exam: Present: warm, dry, intact, normal color. Absent: rash Course Vital Signs 05/29/23 05/29/23 05/29/23 19:22 19:25 20:18 Temperature 97.8 F 98.6 F Pulse Rate 70 56 L 64 Respiratory 18 18 18 Rate Blood Pressure 163/108 176/106 150/112 O2 Sat by Pulse 97 100 99 Oximetry 05/29/23 05/29/23 21:14 22:24 Temperature Pulse Rate 59 L 60 Respiratory 16 18 Rate Blood Pressure 150/112 125/89 O2 Sat by Pulse 100 99 Oximetry Medical Decision Making - Medical Decision Making This is a 33-year-old male who presents to the emergency department for abdominal pain. Was pt. sent in by a medical professional or institution? @ -No Did you speak to anyone other than the patient for history? @ -No Did you review nursing and triage notes? @ -Yes, and I agree, it is accurate with regards to the patient's symptoms. Were old charts reviewed? @ -Liver US from 07/29/2022 demonstrating no evidence of cholelithiasis or other acute process. Differential Diagnosis? @ -Differential Abdominal Pain Men: Appendicitis, cholecystitis, diverticulosis, ischemic bowel, pancreatitis, hepatitis, UTI, gastroenteritis, AAA, incarcerated hernia, bowel obstruction, constipation, inflammatory bowel, hepatitis, peptic ulcer disease, splenic infarction, perforated viscus, testicular torsion, this is not meant to be an all-inclusive list EKG interpreted by me (3pts min.)? @ -Not obtained X-rays interpreted by me (1pt min.)? @ -Not obtained CT interpreted by me (1pt min.)? @ -Computed tomography scan of the abdomen and pelvis obtained. My interpretation identifies no evidence of free air. U/S interpreted by me (1pt. min.)? @ -Not obtained What testing was considered but not performed? (CT, X-rays, U/S, labs)? Why? @ -None What meds were considered but not given? Why? @ -None Did you discuss the management of the patient with other professionals? @ -No Did you reconcile home meds? @ -No Was smoking cessation discussed for >3mins.? @ -I discussed smoking cessation for greater than 3 minutes. The risk of smoking were discussed with the patient including but not limited to risks of cancer, stroke, coronary artery disease and COPD. Also discussed with patient were multiple methods of quitting smoking. Lastly we discussed the financial cost of smoking. Was critical care preformed (if so, how long)? @ -No Were there social determinants of health that impacted care today? How? (Homelessness, low income, unemployed, alcoholism, drug addiction, transportation, low edu. Level, literacy, decrease access to med. care, intermediate, rehab)? @ -No Was there de-escalation of care discussed even if they declined? (Discuss DNR or withdrawal of care, Hospice)? @ -No What co-morbidities impacted this encounter? (DM, HTN, Smoking, COPD, CAD, Cancer, CVA, Hep., AIDS, mental health diagnosis, sleep apnea, morbid obesity)? @ -Alcoholism, smoking Was patient admitted / discharged? @ -Discharged. Lab work obtained revealing an elevated lipase of 520. However, this is not greater than 3x the upper limit normal to suggest acute pancreatitis. Lab work was otherwise nonactionable. Given his pain and history of pancreatitis, we did obtain a computed tomography scan of the abdomen and pelvis. This revealed some fluid-filled prominent jejunal loops in the left side of the abdomen that may be transient or related to a regional enteritis. There is also a slightly hyperechoic area to the inferior pancreatic head which may be due to interposed fat versus early acute pancreatitis. Patient is advised follow-up in 3 months to exclude a subtle underlying mass. Findings discussed with the patient. His symptoms were controlled the emergency department and he did feel stable for discharge home. He was given information for follow-up with gastroenterology as well as a list of local primary care providers for ongoing medical management. He was also given prescriptions for Toradol and Rochester to continue managing his pain at home. Patient is instructed to take the Toradol with Tylenol if needed and avoid any other soxw-mte-sjuagtd anti-inflammatories such as ibuprofen with the Toradol. He is also advised to take the Rochester sparingly when his pain is the most severe and avoid driving or operating machinery when taking this. Undiagnosed new problem with uncertain prognosis? @ -None Drug Therapy requiring intensive monitoring for toxicity (Heparin, Nitro, Insulin, Cardizem)? @ -None Were any procedures done? @ -None Diagnosis/symptom? @ -Epigastric pain Acute, or Chronic, or Acute on Chronic? @ -Acute Uncomplicated (without systemic symptoms) or Complicated (systemic symptoms)? @ -Uncomplicated Side effects of treatment? @ -None Exacerbation, Progression, or Severe Exacerbation] @ -Not applicable Poses a threat to life or bodily function? @ -No Return precautions reviewed in depth, the patient is instructed to return to the emergency department with any new, worsening, or concerning symptoms. Patient verbalized understanding. This case was discussed in detail with the attending ED physician, Dr. Quinteros. Presentation, findings, and treatment plan discussed in detail as well. - Lab Data Result diagrams: 05/29/23 20:04 05/29/23 20:04 Lab Results 05/29/23 05/29/23 05/29/23 Range/Units 20:04 20:04 20:04 WBC 6.1 (3.8-10.6) k/uL RBC 5.28 (4.30-5.90) m/uL Hgb 16.1 (13.0-17.5) gm/dL Hct 46.9 (39.0-53.0) % MCV 88.8 (80.0-100.0) fL MCH 30.4 (25.0-35.0) pg MCHC 34.3 (31.0-37.0) g/dL RDW 13.6 (11.5-15.5) % Plt Count 190 (150-450) k/uL MPV 7.4 Neutrophils % 74 % Lymphocytes % 17 % Monocytes % 5 % Eosinophils % 4 % Basophils % 0 % Neutrophils # 4.5 (1.3-7.7) k/uL Lymphocytes # 1.0 (1.0-4.8) k/uL Monocytes # 0.3 (0-1.0) k/uL Eosinophils # 0.2 (0-0.7) k/uL Basophils # 0.0 (0-0.2) k/uL Sodium 136 L (137-145) mmol/L Potassium 3.6 (3.5-5.1) mmol/L Chloride 102 (98-107) mmol/L Carbon Dioxide 24 (22-30) mmol/L Anion Gap 10 mmol/L BUN 7 L (9-20) mg/dL Creatinine 0.97 (0.66-1.25) mg/dL Est GFR (CKD-EPI)AfAm >90 (>60 ml/min/1.73 sqM) Est GFR (CKD-EPI)NonAf >90 (>60 ml/min/1.73 sqM) Glucose 103 H (74-99) mg/dL Plasma Lactic Acid Aknit 1.1 (0.7-2.0) mmol/L Calcium 9.3 (8.4-10.2) mg/dL Total Bilirubin 1.7 H (0.2-1.3) mg/dL AST 22 (17-59) U/L ALT 17 (4-49) U/L Alkaline Phosphatase 87 (38-126) U/L Total Protein 7.6 (6.3-8.2) g/dL Albumin 4.6 (3.5-5.0) g/dL Amylase 73 (30-110) U/L Lipase 520 H (23-300) U/L Serum Alcohol <10 mg/dL - Radiology Data Radiology results: report reviewed, image reviewed Disposition Clinical Impression: Nicotine dependence, Epigastric pain, Hx of pancreatitis Disposition: HOME SELF-CARE Instructions (If sedation given, give patient instructions): Abdominal Pain (ED) Additional Instructions: Return to the emergency department with any new, worsening, or concerning symptoms. Take the Toradol with Tylenol as needed for pain relief. If you choose to take the Toradol, do not take ibuprofen or any other zuvt-udd-cuztugi anti-inflammatories, take one or the other. Take the [place] sparingly when your pain is the most severe and be aware that it may be sedating. Contact gastroenterology as listed below. Let them know that you were seen in the emerg ency department for recurrent bouts of pancreatitis and need to be seen for follow-up evaluation. I have also attached a list of local primary care providers you can contact become established for ongoing medical management. Prescriptions: HYDROcodone/APAP 7.5-325MG [Rochester 7.5-325] 1 tab PO Q6HR PRN 3 Days #12 tab PRN Reason: Pain Ketorolac [Toradol] 10 mg PO Q6HR PRN #15 tab PRN Reason: Pain Is patient prescribed a controlled substance at d/c from ED?: Yes When asked, does pt state using other controlled substances?: No If prescribed controlled substance>3 days was MAPS reviewed?: Prescribed <3 Days Referrals: None,Stated [Primary Care Provider] - 1-2 days Yara Moore MD [STAFF PHYSICIAN] - 1-2 days Forms: Area PCPs
[2023-05-29 20:12] VITALS: TEMP 98.6
[2023-05-29 20:14] LABS: Basophils % (A) 0 %; Eosinophils # (A) 0.2 k/uL (0-0.7); Eosinophils % (A) 4 %; HCT 46.9 % (39.0-53.0); HGB 16.1 gm/dL (13.0-17.5); Lymphocytes % (A) 17 %; MCH 30.4 pg (25.0-35.0); MCHC 34.3 g/dL (31.0-37.0); MCV 88.8 fL (80.0-100.0); Mean Platelet Volume 7.4; Monocytes # (A) 0.3 k/uL (0-1.0); Monocytes % (A) 5 %; Neutrophils # (A) 4.5 k/uL (1.3-7.7); Neutrophils % (A) 74 %; Platelet Count 190 k/uL (150-450); RBC 5.28 m/uL (4.30-5.90); RDW 13.6 % (11.5-15.5); WBC 6.1 k/uL (3.8-10.6)
[2023-05-29 20:35] LABS: ALT 17 U/L (4-49); AST 22 U/L (17-59); African American GFR (CKD) >90 (>60 ml/min/1.73 sqM); Albumin 4.6 g/dL (3.5-5.0); Alcohol <10 mg/dL; Alkaline Phosphatase 87 U/L (38-126); Amylase 73 U/L (30-110); Anion Gap 10 mmol/L; Blood Urea Nitrogen 7 mg/dL (9-20); Calcium 9.3 mg/dL (8.4-10.2); Carbon Dioxide 24 mmol/L (22-30); Chloride 102 mmol/L (98-107); Glucose 103 mg/dL (74-99); Lipase 520 U/L (23-300); Non-African American GFR(CKD) >90 (>60 ml/min/1.73 sqM); Potassium 3.6 mmol/L (3.5-5.1); Sodium 136 mmol/L (137-145); Total Bilirubin 1.7 mg/dL (0.2-1.3); Total Protein 7.6 g/dL (6.3-8.2)
[2023-05-29] MEDS ORDERED: HYDROmorphone 0.5 MG/0.5 ML SYRINGE IVP STA (20:47)
--- NOTE | 2023-05-29 21:40 | CT ---
EXAMINATION TYPE: CT abdomen pelvis w con DATE OF EXAM: 05/29/2023 COMPARISON: 05/22/2022 HISTORY: 33-year-old male Epigastric and LUQ pain. History of pancreatitis TECHNIQUE: Contiguous axial scanning of the abdomen and pelvis following administration of 100 ml Iso bhumika 300 IV contrast. Delayed images through the kidneys and coronal/sagittal reconstructions perform ed. CT DLP: 1121.5 mGycm Automated exposure control for dose reduction was used. FINDINGS: The heart is normal size pericardial effusion. Mild dependent atelectasis in the lung bases. Liver mildly enlarged at 18.0 cm with low attenuation compatible with fatty infiltration. Slightly hypoechoic appearance to the inferior pancreatic head. No peripancreatic fluid collection se en. Portal venous system is patent. No biliary ductal dilatation. Gallbladder, adrenal glands, kidneys, and spleen within normal limits. No dilated small bowel, free fluid, or free air. There is some prominent fluid. Jejunal loops in the left side of the abdomen. No mesenteric or retroperitoneal lymphadenopathy. Normal appendix. Scattered mild stool. No pericolic inflammatory change. Bladder is urine distended. No abnormal fluid collection the pelvis or pelvic lymphadenopathy. Bones: No osseous destructive process. IMPRESSION: 1. SOME PROMINENT FLUID FILLED JEJUNAL LOOPS IN THE LEFT SIDE OF THE ABDOMEN MAY BE TRANSIENT OR COUL D REFLECT A REGIONAL ENTERITIS. 2. 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 3. SLIGHT HYPOECHOIC APPEARANCE TO THE INFERIOR PANCREATIC HEAD MAY BE DUE TO SOME INTERPOSED FAT. CO RRELATE WITH AMYLASE AND LIPASE LEVELS TO EXCLUDE THE POSSIBILITY OF EARLY ACUTE PANCREATITIS. RECOMM END FOLLOW-UP MRI IN 3 MONTHS TO EXCLUDE A SUBTLE UNDERLYING MASS. CORRELATE WITH CA-19-9 LEVELS IN T HE MEANTIME.
[2023-05-29] MEDS ORDERED: ACET/COD 300 MG/30 MG STARTER PACK 6 TAB BTL PO STA (21:57)
[2023-05-29] MEDS ORDERED: IBUPROFEN 600 MG STARTER PACK 4 TAB BTL PO STA (21:57)
[2023-05-29 22:26] VITALS: BP 125/89; PULSE 60; RESP 18
== END 2023-05-29 22:26 | disposition home or self-care (01) ==
LOC: EC 19:01
DX: R10.13 Epigastric pain (principal); F17.200 Nicotine dependence, unspecified, uncomplicated; Z87.19 Personal history of other diseases of the digestive system
CPT/HCPCS: 36415; 80053; 82150; 83605; 83690; 85025; 74177; 99285; 96374; 96376; 96361; G0480; J1170 ×2; J1885; Q9967; 80320

== ENCOUNTER 2023-05-30 07:13 | Emergency (ER) | payer OTHER ==
[2023-05-30 07:18] VITALS: RESP 18
[2023-05-30] MEDS ORDERED: SODIUM CHLORIDE 0.9% 2,000 ML IV STA (07:25)
[2023-05-30] MEDS ORDERED: diphenhydrAMINE 50 MG/ML 1 ML VIAL IVP STA (07:25)
[2023-05-30] MEDS ORDERED: METOCLOPRAMIDE 5 MG/ML 2 ML VIAL IVP STA (07:25)
[2023-05-30] MEDS ORDERED: HYDROmorphone 0.5 MG/0.5 ML SYRINGE IVP STA ×2 (07:26→10:51)
--- NOTE | 2023-05-30 08:01 | ED ---
Abdominal Pain HPI - General Chief Complaint: Abdominal Pain Stated Complaint: Abdominal Pain, Back Pain Time Seen by Provider: 05/30/23 07:18 Source: patient, RN notes reviewed Mode of arrival: ambulatory Limitations: no limitations - History of Present Illness Initial Comments: 33-year-old male presents emergency Department chief complaint of nausea v omiting abdominal pain. Patient has history of pancreatitis patient states that he he probably drank was a cause of his pancreatitis. Patient seen here last night for similar complaints. Patient mildly elevated lipase, negative CT. Patient states pain is worsened it does radiate to his back. Patient denies any chest pain or shortness of breath no fevers or chills. Patient states pain feels exactly like his pancreatitis. - Related Data Home Medications Medication Instructions Recorded Confirmed Ibuprofen [Motrin Ib] 800 mg PO Q8H PRN 05/22/22 05/30/23 Previous Rx's Medication Instructions Recorded HYDROcodone/APAP 7.5-325MG [[place] 1 tab PO Q6HR PRN 3 Days #12 tab 05/29/23 7.5-325] Ketorolac [Toradol] 10 mg PO Q6HR PRN #15 tab 05/29/23 Ondansetron Odt [Zofran Odt] 4 mg PO Q8HR PRN #10 tab 05/30/23 Allergies Allergy/AdvReac Type Severity Reaction Status Date / Time No Known Allergies Allergy Verified 05/30/23 09:36 Review of Systems ROS Statement: Those systems with pertinent positive or pertinent negative responses have been documented in the HPI. ROS Other: All systems not noted in ROS Statement are negative. Past Medical History Past Medical History: No Reported History Additional Past Medical History / Comment(s): pancreatitis History of Any Multi-Drug Resistant Organisms: None Reported Past Surgical History: No Surgical Hx Reported Past Psychological History: No Psychological Hx Reported Smoking Status: Current every day smoker Past Alcohol Use History: Occasional Past Drug Use History: None Reported - Past Family History family Additional Family Medical History / Comment(s): no family hx of pancreatitis General Exam Limitations: no limitations General appearance: alert, in no apparent distress Head exam: Present: atraumatic, normocephalic, normal inspection Eye exam: Present: normal appearance, PERRL, EOMI. Absent: scleral icterus, conjunctival injection, periorbital swelling ENT exam: Present: normal exam, normal oropharynx, mucous membranes moist Neck exam: Present: normal inspection, full ROM. Absent: tenderness, meningismus, lymphadenopathy Respiratory exam: Present: normal lung sounds bilaterally. Absent: respiratory distress, wheezes, rales, rhonchi, stridor Cardiovascular Exam: Present: regular rate, normal rhythm, normal heart sounds. Absent: systolic murmur, diastolic murmur, rubs, gallop, clicks GI/Abdominal exam: Present: soft, tenderness, normal bowel sounds. Absent: distended, guarding, rebound, rigid Back exam: Absent: CVA tenderness (R), CVA tenderness (L) Course Vital Signs 05/30/23 05/30/23 05/30/23 07:15 07:18 09:00 Temperature 98 F 98.3 F 98.1 F Pulse Rate 77 58 L Respiratory 18 18 Rate Blood Pressure 158/80 142/92 O2 Sat by Pulse 100 98 Oximetry Medical Decision Making - Medical Decision Making Was pt. sent in by a medical professional or institution (, PA, COMBAT CONTROL MANAGER, urgent care, hospital, or senior living...) When possible be specific @ -No Did you speak to anyone other than the patient for history (EMS, parent, family, police, friend...)? What history was obtained from this source @ -No Did you review nursing and triage notes (agree or disagree)? Why? @ -I reviewed and agree with nursing and triage notes Were old charts reviewed (outside hosp., previous admission, EMS record, old EKG, old radiological studies, urgent care reports/EKG's, senior living records)? Report findings @ -Reviewed CT and laboratories from yesterday Differential Diagnosis (chest pain, altered mental status, abdominal pain women, abdominal pain men, vaginal bleeding, weakness, fever, dyspnea, syncope, headache, dizziness, GI bleed, back pain, seizure, CVA, palpatations, mental health, musculoskeletal)? @ -nDifferential Abdominal Pain Women: Appendicitis, Cholecystitis, diverticulosis, ischemic bowel, pancreatitis, hepatitis, UTI, gastroenteritis, AAA, incarcerated hernia, bowel obstruction, constipation, inflammatory bowel, hepatitis, peptic ulcer disease, splenic infarction, perforated viscus, vulvitis, ovarian torsion, PID, kidney stone, placenta abruption, this is not meant to be an all-inclusive listable EKG interpreted by me (3pts min.). @ -[None X-rays interpreted by me (1pt min.). @ -None done CT interpreted by me (1pt min.). @ -None done U/S interpreted by me (1pt. min.). @ -None done What testing was considered but not performed or refused? (CT, X-rays, U/S, labs)? Why? @ -None What meds were considered but not given or refused? Why? @ -None Did you discuss the management of the patient with other professionals (professionals i.e. , PA, COMBAT CONTROL MANAGER, lab, RT, psych nurse, social organization professor, editor at large, teacher, staff mine warfare officer, patient case manager)? Give summary @ -No Was smoking cessation discussed for >3mins.? @ -No Was critical care preformed (if so, how long)? @ -No Were there social determinants of health that impacted care today? How? (Homelessness, low income, unemployed, alcoholism, drug addiction, transportation, low edu. Level, literacy, decrease access to med. care, care home, rehab)? @ -No Was there de-escalation of care discussed even if they declined (Discuss DNR or withdrawal of care, Hospice)? DNR status @ -No What co-morbidities impacted this encounter? (DM, HTN, Smoking, COPD, CAD, Cancer, CVA, ARF, Chemo, Hep., AIDS, mental health diagnosis, sleep apnea, morbid obesity)? @ -Pancreatitis Was patient admitted / discharged? Hospital course, mention meds given and route, prescriptions, significant lab abnormalities, going to OR and other pertinent info. @ -Discharge patient is improved after IV fluids, antiemetics and pain control. Patient discharged in stable condition lipase is improved to 300. Undiagnosed new problem with uncertain prognosis? @ -No Drug Therapy requiring intensive monitoring for toxicity (Heparin, Nitro, Insulin, Cardizem)? @ -No Were any procedures done? @ -No Diagnosis/symptom? @ -Abdominal pain, pancreatitis Acute, or Chronic, or Acute on Chronic? @ -Acute on chronic Uncomplicated (without systemic symptoms) or Complicated (systemic symptoms)? @ - complicated Side effects of treatment? @ -No Exacerbation, Progression, or Severe Exacerbation? @ -No Poses a threat to life or bodily function? How? (Chest pain, [place], [place], pneumonia, PE, COPD, DKA, ARF, appy, cholecystitis, CVA, Diverticulitis, Homicidal, Suicidal, threat to staff... and all critical care pts) @ -No - Lab Data Result diagrams: 05/30/23 07:56 05/30/23 07:56 Lab Results 05/30/23 05/30/23 05/30/23 Range/Units 07:56 07:56 07:56 WBC 7.8 (3.8-10.6) k/uL RBC 5.39 (4.30-5.90) m/uL Hgb 16.8 (13.0-17.5) gm/dL Hct 47.4 (39.0-53.0) % MCV 87.9 (80.0-100.0) fL MCH 31.1 (25.0-35.0) pg MCHC 35.4 (31.0-37.0) g/dL RDW 13.6 (11.5-15.5) % Plt Count 239 (150-450) k/uL MPV 7.3 Neutrophils % 78 % Lymphocytes % 13 % Monocytes % 4 % Eosinophils % 3 % Basophils % 0 % Neutrophils # 6.1 (1.3-7.7) k/uL Lymphocytes # 1.0 (1.0-4.8) k/uL Monocytes # 0.3 (0-1.0) k/uL Eosinophils # 0.2 (0-0.7) k/uL Basophils # 0.0 (0-0.2) k/uL Sodium 136 L (137-145) mmol/L Potassium 3.6 (3.5-5.1) mmol/L Chloride 101 (98-107) mmol/L Carbon Dioxide 24 (22-30) mmol/L Anion Gap 11 mmol/L BUN 6 L (9-20) mg/dL Creatinine 0.85 (0.66-1.25) mg/dL Est GFR (CKD-EPI)AfAm >90 (>60 ml/min/1.73 sqM) Est GFR (CKD-EPI)NonAf >90 (>60 ml/min/1.73 sqM) Glucose 104 H (74-99) mg/dL Plasma Lactic Acid Ankit 0.9 (0.7-2.0) mmol/L Calcium 9.3 (8.4-10.2) mg/dL Total Bilirubin 1.4 H (0.2-1.3) mg/dL AST 24 (17-59) U/L ALT 16 (4-49) U/L Alkaline Phosphatase 87 (38-126) U/L Total Protein 7.8 (6.3-8.2) g/dL Albumin 4.6 (3.5-5.0) g/dL Lipase 373 H (23-300) U/L Disposition Clinical Impression: Pancreatitis, Abdominal pain Disposition: HOME SELF-CARE Condition: Stable Instructions (If sedation given, give patient instructions): Abdominal Pain (ED) Additional Instructions: Please return to the Emergency Department if symptoms worsen or any other concerns. Prescriptions: Ondansetron Odt [Zofran Odt] 4 mg PO Q8HR PRN #10 tab PRN Reason: Nausea Is patient prescribed a controlled substance at d/c from ED?: No Referrals: None,Stated [Primary Care Provider] - 1-2 days Time of Disposition: 10:42
[2023-05-30 08:10] LABS: Basophils % (A) 0 %; Eosinophils # (A) 0.2 k/uL (0-0.7); Eosinophils % (A) 3 %; HCT 47.4 % (39.0-53.0); HGB 16.8 gm/dL (13.0-17.5); Lymphocytes % (A) 13 %; MCH 31.1 pg (25.0-35.0); MCHC 35.4 g/dL (31.0-37.0); MCV 87.9 fL (80.0-100.0); Mean Platelet Volume 7.3; Monocytes # (A) 0.3 k/uL (0-1.0); Monocytes % (A) 4 %; Neutrophils # (A) 6.1 k/uL (1.3-7.7); Neutrophils % (A) 78 %; Platelet Count 239 k/uL (150-450); RBC 5.39 m/uL (4.30-5.90); RDW 13.6 % (11.5-15.5); WBC 7.8 k/uL (3.8-10.6)
[2023-05-30 09:39] VITALS: BP 142/92; PULSE 58; TEMP 98.1
[2023-05-30 10:05] LABS: ALT 16 U/L (4-49); AST 24 U/L (17-59); African American GFR (CKD) >90 (>60 ml/min/1.73 sqM); Albumin 4.6 g/dL (3.5-5.0); Alkaline Phosphatase 87 U/L (38-126); Anion Gap 11 mmol/L; Blood Urea Nitrogen 6 mg/dL (9-20); Calcium 9.3 mg/dL (8.4-10.2); Carbon Dioxide 24 mmol/L (22-30); Chloride 101 mmol/L (98-107); Glucose 104 mg/dL (74-99); Lipase 373 U/L (23-300); Non-African American GFR(CKD) >90 (>60 ml/min/1.73 sqM); Potassium 3.6 mmol/L (3.5-5.1); Sodium 136 mmol/L (137-145); Total Bilirubin 1.4 mg/dL (0.2-1.3); Total Protein 7.8 g/dL (6.3-8.2)
== END 2023-05-30 10:57 | disposition home or self-care (01) ==
LOC: EC 07:13
DX: K85.90 Acute pancreatitis without necrosis or infection, unspecified (principal); F17.200 Nicotine dependence, unspecified, uncomplicated
CPT/HCPCS: 36415; 80053; 83605; 83690; 85025; 99284; 96374; 96375 ×2; 96361; J1200; J2765; J1170

== ENCOUNTER 2024-08-25 05:40 | Emergency (ER) | payer OTHER ==
--- NOTE | 2024-08-25 06:35 | ED ---
Abdominal Pain HPI - General Chief Complaint: Abdominal Pain Stated Complaint: Abd pain Time Seen by Provider: 08/25/24 05:58 Source: patient, RN notes reviewed Mode of arrival: wheelchair Limitations: no limitations - History of Present Illness Initial Comments: 34-year-old male with history of alcohol abuse drinking approximately 1 pint of alcohol per day over the past 4 to 5 months and marijuana abuse smoking multiple times per day Emergency Department for chief complaint of diffuse abdominal pain that started approximately 2 days ago. Patient states that the pain is located to his middle abdomen over the past day. He associates nausea and chills with this sensation. Denies fevers, hematemesis, coffee-ground emesis, changes in bladder or bowel habits. Patient states his last drink of alcohol was approximately 4 days ago. Denies history of alcohol withdrawal or nausea/vomiting from marijuana use. denies previous surgical abdominal history. - Related Data Home Medications Medication Instructions Recorded Confirmed Ibuprofen [Motrin Ib] 800 mg PO Q8H PRN 05/22/22 05/30/23 Previous Rx's Medication Instructions Recorded HYDROcodone/APAP 7.5-325MG [[place] 1 tab PO Q6HR PRN 3 Days #12 tab 05/29/23 7.5-325] Ketorolac [Toradol] 10 mg PO Q6HR PRN #15 tab 05/29/23 Ondansetron Odt [Zofran Odt] 4 mg PO Q8HR PRN #10 tab 05/30/23 Ketorolac [Toradol] 10 mg PO Q8HR #15 tab 08/25/24 Allergies Allergy/AdvReac Type Severity Reaction Status Date / Time shellfish derived [Shellfish] Allergy Swelling Verified 08/25/24 05:44 Review of Systems ROS Statement: Those systems with pertinent positive or pertinent negative responses have been documented in the HPI. ROS Other: All systems not noted in ROS Statement are negative. Past Medical History Past Medical History: No Reported History Additional Past Medical History / Comment(s): pancreatitis History of Any Multi-Drug Resistant Organisms: None Reported Past Surgical History: No Surgical Hx Reported Past Psychological History: No Psychological Hx Reported Smoking Status: Current every day smoker Past Alcohol Use History: Rare Past Drug Use History: Cocaine, Marijuana, Prescription Drug Abuse - Past Family History family Additional Family Medical History / Comment(s): no family hx of pancreatitis General Exam Limitations: no limitations General appearance: alert, in no apparent distress ENT exam: Present: normal exam, mucous membranes moist Neck exam: Present: normal inspection. Absent: tenderness, meningismus, lymphadenopathy Respiratory exam: Present: normal lung sounds bilaterally. Absent: respiratory distress, wheezes, rales, rhonchi, stridor Cardiovascular Exam: Present: regular rate, normal rhythm, normal heart sounds. Absent: systolic murmur, diastolic murmur, rubs, gallop, clicks GI/Abdominal exam: Present: soft, tenderness (epigastric, RUQ), normal bowel sounds. Absent: distended, guarding, rebound, rigid Extremities exam: Present: normal inspection, full ROM, normal capillary refill. Absent: tenderness, pedal edema, joint swelling, calf tenderness Back exam: Present: normal inspection Neurological exam: Present: alert, oriented X3, CN II-XII intact Course Vital Signs 08/25/24 08/25/24 08/25/24 05:41 06:29 07:50 Temperature 97.6 F 97.9 F 97.1 F L Pulse Rate 60 54 L 52 L Respiratory 18 20 16 Rate Blood Pressure 156/75 153/90 118/76 O2 Sat by Pulse 100 99 100 Oximetry Medical Decision Making - Medical Decision Making Was pt. sent in by a medical professional or institution (, PA, MARKETING COMMUNICATIONS COORDINATOR, urgent care, hospital, or assisted...) When possible be specific @ -No Did you speak to anyone other than the patient for history (EMS, parent, family, police, friend...)? What history was obtained from this source @ -spoke with patient's significant other at bedside who states that patient does have a history of pancreatitis. Did you review nursing and triage notes (agree or disagree)? Why? @ -I reviewed and agree with nursing and triage notes Were old charts reviewed (outside hosp., previous admission, EMS record, old EKG, old radiological studies, urgent care reports/EKG's, assisted records)? Report findings @ -No old charts were reviewed Differential Diagnosis (chest pain, altered mental status, abdominal pain women, abdominal pain men, vaginal bleeding, weakness, fever, dyspnea, syncope, he adache, dizziness, GI bleed, back pain, seizure, CVA, palpatations, mental health, musculoskeletal)? @ -Differential Abdominal Pain Men: Appendicitis, cholecystitis, diverticulosis, ischemic bowel, pancreatitis, hepatitis, UTI, gastroenteritis, AAA, incarcerated hernia, bowel obstruction, constipation, inflammatory bowel, hepatitis, peptic ulcer disease, splenic infarction, perforated viscus, testicular torsion, this is not meant to be an all-inclusive list EKG interpreted by me (3pts min.). @ -none X-rays interpreted by me (1pt min.). @ -None done CT interpreted by me (1pt min.). @ -None done U/S interpreted by me (1pt. min.). @ -None done What testing was considered but not performed or refused? (CT, X-rays, U/S, labs)? Why? @ -None What meds were considered but not given or refused? Why? @ -None Did you discuss the management of the patient with other professionals (professionals i.e. , PA, MARKETING COMMUNICATIONS COORDINATOR, lab, RT, psych nurse, social work nurse, hides soaker, teacher, special weapons unit officer, case management assistant)? Give summary @ -No Was smoking cessation discussed for >3mins.? @ -No Was critical care preformed (if so, how long)? @ -No Were there social determinants of health that impacted care today? How? ([place] elessness, low income, unemployed, alcoholism, drug addiction, transportation, low edu. Level, literacy, decrease access to med. care, long term, rehab)? @ -No Was there de-escalation of care discussed even if they declined (Discuss DNR or withdrawal of care, Hospice)? DNR status @ -No What co-morbidities impacted this encounter? (DM, HTN, Smoking, COPD, CAD, Cancer, CVA, ARF, Chemo, Hep., AIDS, mental health diagnosis, sleep apnea, morbid obesity)? @ -None Was patient admitted / discharged? Hospital course, mention meds given and route, prescriptions, significant lab abnormalities, going to OR and other pertinent info. @ -discharge. 34-year-old male with diffuse abdominal pain and nausea. On ev aluation patient noted to be laying on his abdomen showing mild signs of acute distress due to abdominal pain. Pain is most notable to the epigastric region. Bowel sounds equal throughout all quadrants. Patient states that he feels like the pain is going into his back however there is no pain to palpation of his back. Patient is provided with antiemetics and pain medication pending laboratory results. Additionally, he started on IV fluids with clinical signs of dehydration. He is in agreement with this plan. Reevaluation after medication ministration patient states feeling markedly better. Labs remarkable for lipase is 635. Serum alcohol level less than 10. Patient stable for discharge at this time. He is provided with a prescription for Toradol to take only as needed for pain and instructed to not take this medication alongside Motrin however is able to take this medication with Tylenol. All questions have been answered at bedside and strict return parameters discussed with the patient and he has verbalized understanding. Case discussed with Dr. Estrada Undiagnosed new problem with uncertain prognosis? @ -No Drug Therapy requiring intensive monitoring for toxicity (Heparin, Nitro, Insulin, Cardizem)? @ -No Were any procedures done? @ -No Diagnosis/symptom? @ -abdominal pain, alcohol abuse Acute, or Chronic, or Acute on Chronic? @ -acute Uncomplicated (without systemic symptoms) or Complicated (systemic symptoms)? @ -uncomplicated Side effects of treatment? @ -No Exacerbation, Progression, or Severe Exacerbation? @ -No Poses a threat to life or bodily function? How? (Chest pain, [place], [place], pneumonia, PE, COPD, DKA, ARF, appy, cholecystitis, CVA, Diverticulitis, Homicidal, Suicidal, threat to staff... and all critical care pts) @ -No - Lab Data Result diagrams: 08/25/24 06:34 08/25/24 06:34 Lab Results 08/25/24 08/25/24 08/25/24 Range/Units 06:34 06:34 06:34 WBC 5.7 (3.8-10.6) k/uL RBC 4.91 (4.30-5.90) m/uL Hgb 15.1 (13.0-17.5) gm/dL Hct 45.9 (39.0-53.0) % MCV 93.5 (80.0-100.0) fL MCH 30.7 (25.0-35.0) pg MCHC 32.8 (31.0-37.0) g/dL RDW 13.2 (11.5-15.5) % Plt Count 217 (150-450) k/uL MPV 7.0 Neutrophils % 71 % Lymphocytes % 17 % Monocytes % 7 % Eosinophils % 3 % Basophils % 0 % Neutrophils # 4.1 (1.3-7.7) k/uL Lymphocytes # 1.0 (1.0-4.8) k/uL Monocytes # 0.4 (0-1.0) k/uL Eosinophils # 0.2 (0-0.7) k/uL Basophils # 0.0 (0-0.2) k/uL Sodium 137 (137-145) mmol/L Potassium 3.9 (3.5-5.1) mmol/L Chloride 105 (98-107) mmol/L Carbon Dioxide 25 (22-30) mmol/L Anion Gap 7 mmol/L BUN 9 (9-20) mg/dL Creatinine 1.02 (0.66-1.25) mg/dL Est GFR (CKD-EPI)AfAm >90 (>60 ml/min/1.73 sqM) Est GFR (CKD-EPI)NonAf >90 (>60 ml/min/1.73 sqM) Glucose 101 H (74-99) mg/dL Plasma Lactic Acid Ankit 0.9 (0.7-2.0) mmol/L Calcium 9.3 (8.4-10.2) mg/dL Total Bilirubin 1.6 H (0.2-1.3) mg/dL AST 23 (17-59) U/L ALT 21 (4-49) U/L Alkaline Phosphatase 94 (38-126) U/L Total Protein 7.0 (6.3-8.2) g/dL Albumin 4.5 (3.5-5.0) g/dL Amylase 79 (30-110) U/L Lipase 635 H (23-300) U/L Serum Alcohol <10 mg/dL Disposition Clinical Impression: Abdominal pain, Nausea and vomiting Disposition: HOME SELF-CARE Condition: Good Instructions (If sedation given, give patient instructions): Abdominal Pain (ED) Additional Instructions: Please return to the Emergency Department if symptoms worsen or any other concerns. Prescriptions: Ketorolac [Toradol] 10 mg PO Q8HR #15 tab Is patient prescribed a controlled substance at d/c from ED?: No Referrals: None,Stated [Primary Care Provider] - 1-2 days Time of Disposition: 07:27
[2024-08-25] MEDS: SODIUM CHLORIDE 0.9% 1,000 ML IV STA (06:37)
[2024-08-25] MEDS: ONDANSETRON 4 MG/2 ML VIAL IVP STA (06:38)
[2024-08-25] MEDS: KETOROLAC 15 MG/ML 1 ML VIAL IVP STA ×2 (06:41→07:47)
[2024-08-25 06:44] LABS: Basophils % (A) 0 %; Eosinophils # (A) 0.2 k/uL (0-0.7); Eosinophils % (A) 3 %; HCT 45.9 % (39.0-53.0); HGB 15.1 gm/dL (13.0-17.5); Lymphocytes % (A) 17 %; MCH 30.7 pg (25.0-35.0); MCHC 32.8 g/dL (31.0-37.0); MCV 93.5 fL (80.0-100.0); Monocytes # (A) 0.4 k/uL (0-1.0); Monocytes % (A) 7 %; Neutrophils # (A) 4.1 k/uL (1.3-7.7); Neutrophils % (A) 71 %; Platelet Count 217 k/uL (150-450); RBC 4.91 m/uL (4.30-5.90); RDW 13.2 % (11.5-15.5); WBC 5.7 k/uL (3.8-10.6)
[2024-08-25 06:56] LABS: ALT 21 U/L (4-49); AST 23 U/L (17-59); African American GFR (CKD) >90 (>60 ml/min/1.73 sqM); Albumin 4.5 g/dL (3.5-5.0); Alcohol <10 mg/dL; Alkaline Phosphatase 94 U/L (38-126); Amylase 79 U/L (30-110); Anion Gap 7 mmol/L; Blood Urea Nitrogen 9 mg/dL (9-20); Calcium 9.3 mg/dL (8.4-10.2); Carbon Dioxide 25 mmol/L (22-30); Chloride 105 mmol/L (98-107); Glucose 101 mg/dL (74-99); Lipase 635 U/L (23-300); Non-African American GFR(CKD) >90 (>60 ml/min/1.73 sqM); Potassium 3.9 mmol/L (3.5-5.1); Sodium 137 mmol/L (137-145); Total Bilirubin 1.6 mg/dL (0.2-1.3)
[2024-08-25 07:53] VITALS: BP 118/76; PULSE 52; RESP 16; TEMP 97.1
== END 2024-08-25 07:55 | disposition home or self-care (01) ==
LOC: EC 05:40
DX: R10.13 Epigastric pain (principal); R11.2 Nausea with vomiting, unspecified; F10.10 Alcohol abuse, uncomplicated; F17.200 Nicotine dependence, unspecified, uncomplicated; Z91.013 Allergy to seafood; Y90.0 Blood alcohol level of less than 20 mg/100 ml
CPT/HCPCS: 36415; 80053; 82150; 83605; 83690; 85025; 99284; 96374; 96375; 96376; 96361; G0480; J2405; J1885; 80320